=== PATIENT | male | born 1960 | race African-American/Black ===

== ENCOUNTER 2017-01-23 20:33 | Inpatient (IN) | payer OTHER ==
[~2017-01-23] VITALS: Ht 172.7 cm; Wt 85.4 kg
[~2017-01-23 20:33] MED LIST: ALBUAER3 INH; CEPALOZ PO; META48.53 PO; PHEN60SU RECTAL; SALI0.653 EACH NARE; TYLE325T PO
[2017-01-23 20:36] VITALS: BP 150/72; PULSE 95; RESP 15; TEMP 99.2; O2SAT 99
--- NOTE | 2017-01-23 20:43 | PD ---
Physical Exam Time Seen by Provider: 20:41 Narrative 56 y/o male presents with sob, cough, headache, reported syncopal event, nausea , paresthesias in the extremities. Symptoms started yesterday. he has had cold symptoms for several days. vital signs reviewed. Seen at triage desk. Awaiting bed placement. Data Data Last Documented VS Vital Signs Date Time Temp Pulse Resp B/P Pulse Ox O2 Delivery O2 Flow Rate FiO2 01/23/17 20:36 99.2 95 15 150/72 99 Room Air Orders Electrocardiogram (01/23/17 ) [facility] Medical Record Reviewed: Yes Supervised Visit with FEDERICO: Jonathan Irby January 23, 2017 20:43
[2017-01-23 21:19] LABS: AUTOMATED NEUTROPHIL # 4.2 TH/MM3 (1.8-7.7); BASOPHIL # 0.1 TH/MM3 (0-0.2); BASOPHIL % 0.9 % (0.0-2.0); EOSINOPHIL % 0.3 % (0.0-4.0); HEMATOCRIT 27.7 % (39.0-51.0); HEMO FLAGS DIFF FINAL; LYMPHOCYTE # 1.4 TH/MM3 (1.0-4.8); MEAN CELL VOLUME 79.7 FL (80.0-100.0); MEAN CORPUSCULAR HEMOGLOBIN 25.9 PG (27.0-34.0); MEAN CORPUSCULAR HGB CONC 32.5 % (32.0-36.0); MONO % 16.2 % (0.0-8.0); NEUT % 61.6 % (16.0-70.0); PLATELET COUNT 382 TH/MM3 (150-450); RED BLOOD COUNT 3.48 MIL/MM3 (4.50-5.90); RED CELL DISTRIBUTION WIDTH 16.8 % (11.6-17.2); WHITE BLOOD COUNT 6.8 TH/MM3 (4.0-11.0)
--- NOTE | 2017-01-23 21:19 | RADRPT ---
EXAM DATE/TIME: 01/23/2017 21:11 [facility] COMPARISON: CHEST SINGLE AP, August 16, 2016, 22:15. INDICATIONS : Shortness of breath and chest pain. MEDICAL HISTORY : Chronic obstructive pulmonary disease. Asthma. SURGICAL HISTORY : None. ENCOUNTER: Initial ACUITY: 3 days PAIN SCORE: 3/10 LOCATION: chest FINDINGS: A single view of the chest demonstrates the lungs to be symmetrically aerated without evidence of mas s, infiltrate or effusion. The cardiomediastinal contours are unremarkable. Osseous structures are intact. CONCLUSION: No acute disease. Polo Cheney MD on January 23, 2017 at 21:17 Board Certified Radiologist. This report was verified electronically.
[2017-01-23] MEDS ORDERED: ADVA250A INH (21:20)
[2017-01-23 21:41] LABS: ANION GAP 7 MEQ/L (5-15); BICARBONATE 29.7 MEQ/L (21.0-32.0); BLOOD UREA NITROGEN 13 MG/DL (7-18); CHLORIDE 104 MEQ/L (98-107); GLOMERULAR FILTRATION RATE 80 ML/MIN (>89); MAGNESIUM 2.1 MG/DL (1.5-2.5); POTASSIUM 3.8 MEQ/L (3.5-5.1); SODIUM (NA) 141 MEQ/L (136-145)
--- NOTE | 2017-01-23 21:43 | PD ---
HPI Chief Complaint: Chest Pain Time Seen by Provider: 21:39 Travel History International Travel<30 days: No Contact w/Intl Traveler<30days: No Traveled to known affect area: No History of Present Illness HPI Patient comes in for evaluation of left-sided chest pain intermittently over the past month that is getting progressively worse. Patient reports he has a nonproductive cough, shortness of breath, and nausea. Patient reports he has a history of COPD he has been using his inhaler as well as taking over-the- counter medication with little improvement of symptoms. Patient states that today he got into an argument with his brother abhishek while sitting down went to stand up and passed out briefly. Patient states he's has happened to him before but has never been evaluated for it. Patient reportedly had some numbness and tingling in his left upper lower extremity today as well. Denies any radiation of the chest pain. PFSH Past Medical History Hx Anticoagulant Therapy: No Anemia: Yes Arthritis: Yes (HANDS) Asthma: Yes Autoimmune Disease: No Blood Disorders: Yes (PT STATES 2 YEAR HISTORY OF BLOOD IN STOOL) Anxiety: Yes Depression: Yes Heart Rhythm Problems: Yes Cancer: No Cardiac Catheterization: No Cardiovascular Problems: Yes High Cholesterol: No Chemotherapy: No Chest Pain: Yes Congestive Heart Failure: No COPD: Yes Cerebrovascular Accident: No Diabetes: No Diminished Hearing: Yes ([place] LEFT EAR) Endocrine: No Gastrointestinal Disorders: Yes GERD: No Glaucoma: No Genitourinary: No Headaches: Yes Hepatitis: No Hiatal Hernia: No Hypertension: Yes Immune Disorder: No Inguinal Hernia: Yes Insomnia: Yes Kidney Stones: No Musculoskeletal: Yes (HERNIA) Neurologic: No Psychiatric: Yes Reproductive: No Respiratory: Yes Immunizations Current: No Migraines: Yes Myocardial Infarction: No Radiation Therapy: No Renal Failure: No Seizures: No Sickle Cell Disease: No Sleep Apnea: Yes (does not wear cpap) Thyroid Disease: No Ulcer: Yes (HX OF GI BLEED) Past Surgical History Abdominal Surgery: Yes (HERNIA REPAIR INGUINAL X2) AICD: No Cardiac Surgery: No Coronary Artery Bypass Graft: No Ear Surgery: No Endocrine Surgery: No Eye Surgery: No Genitourinary Surgery: No Gynecologic Surgery: No Neurologic Surgery: No Oral Surgery: No Pacemaker: No Thoracic Surgery: No Other Surgery: Yes (HERNIA REPAIR) Social History Alcohol Use: Yes (4 days per week) Tobacco Use: No Substance Use: No (marijuana) Allergies-Medications (Allergen,Severity, Reaction): Coded Allergies: Contrast Media (Verified Allergy, Severe, 01/23/17) DURING LAST STRESS TEST Iodine (Verified Allergy, Severe, 01/23/17) Reported Meds & Prescriptions Reported Meds & Active Scripts Active Metamucil Original Texture (Psyllium Hydrophilic Mucilloid) 48.57 % Pow 1 Scoop PO DAILY PRN 30 Days 1 rounded TEAS[place] in 8 oz of liquid at the first sign of irregularity. Preparation H Supp (Phenylephrine-Gary Butter Supp) 0.25-88.44 % Supp 1 Supp RECTAL QID PRN 14 Days Reported Advair Diskus Inh (Fluticasone-Salmeterol Inh) 250-50 Mcg/Blist Aer 1 Puff INH BID Rinse mouth after use. Proair Hfa 8.5 GM Inh (Albuterol Sulfate) 90 Mcg/Act Aer 2 Puff INH Q4-6H PRN 108 mcg/actuation Review of Systems Except as stated in HPI: all other systems reviewed are Neg Physical Exam Narrative GENERAL: Well-developed, overly nourished, in no acute distress, and non-ill appearing. SKIN: Focused skin assessment warm and dry. HEAD: Atraumatic. Normocephalic. EYES: Pupils equal and round. EOMI. No scleral icterus. No injection or drainage. ENT: No nasal bleeding or discharge. Mucous membranes pink and moist. NECK: Trachea midline. Supple. No nuclear rigidity. CARDIOVASCULAR: Regular rate and rhythm. No murmur appreciated. RESPIRATORY: No accessory muscle use. No respiratory distress. Clear to auscultation. Breath sounds equal bilaterally. GASTROINTESTINAL: Abdomen soft, non-tender, nondistended. Hepatic and splenic margins not palpable. Normal bowel sounds 4. No pulsatile mass. MUSCULOSKELETAL: No obvious deformities. No clubbing. No cyanosis. No edema. Full range of motion. NEUROLOGICAL: Awake and alert. No obvious cranial nerve deficits. Motor grossly within normal limits. Normal speech. PSYCHIATRIC: Appropriate mood and affect; insight and judgment normal. Data Data Last Documented VS Vital Signs Date Time Temp Pulse Resp B/P Pulse Ox O2 Delivery O2 Flow Rate FiO2 01/23/17 20:36 99.2 95 15 150/72 99 Room Air Orders Electrocardiogram (01/23/17 ) Basic Metabolic Panel (Bmp) (01/23/17 20:47) B-Type Natriuretic Peptide (01/23/17 20:47) Complete Blood Count With Diff (01/23/17 20:47) Magnesium (Mg) (01/23/17 20:47) Prothrombin Time / Inr (Pt) (01/23/17 20:47) Act Partial Throm Time (Ptt) (01/23/17 20:47) Troponin I (01/23/17 20:47) Chest, Single Ap (01/23/17 20:47) D-Dimer (01/23/17 20:49) Ct Brain W/O Iv Contrast(Rout) (01/23/17 ) Albuterol Neb (Albuterol Neb) (01/23/17 22:15) Ventilation & Perfusion Scan (01/23/17 ) Aspirin Chew (Aspirin Chew) (01/23/17 23:00) Orthostatic Vital Signs (01/23/17 22:50) Labs Laboratory Tests Test 01/23/17 20:57 White Blood Count 6.8 TH/MM3 Red Blood Count 3.48 MIL/MM3 Hemoglobin 9.0 GM/DL Hematocrit 27.7 % Mean Corpuscular Volume 79.7 FL Mean Corpuscular Hemoglobin 25.9 PG Mean Corpuscular Hemoglobin 32.5 % Concent Red Cell Distribution Width 16.8 % Platelet Count 382 TH/MM3 Mean Platelet Volume 7.6 FL Neutrophils (%) (Auto) 61.6 % Lymphocytes (%) (Auto) 21.0 % Monocytes (%) (Auto) 16.2 % Eosinophils (%) (Auto) 0.3 % Basophils (%) (Auto) 0.9 % Neutrophils # (Auto) 4.2 TH/MM3 Lymphocytes # (Auto) 1.4 TH/MM3 Monocytes # (Auto) 1.1 TH/MM3 Eosinophils # (Auto) 0.0 TH/MM3 Basophils # (Auto) 0.1 TH/MM3 CBC Comment DIFF FINAL Differential Comment Prothrombin Time 11.9 SEC Prothromb Time International 1.1 RATIO Ratio Activated Partial 22.8 SEC Thromboplast Time D-Dimer Quantitative (PE/DVT) 1.08 MG/L FEU Sodium Level 141 MEQ/L Potassium Level 3.8 MEQ/L Chloride Level 104 MEQ/L Carbon Dioxide Level 29.7 MEQ/L Anion Gap 7 MEQ/L Blood Urea Nitrogen 13 MG/DL Creatinine 1.14 MG/DL Estimat Glomerular Filtration 80 ML/MIN Rate Random Glucose 124 MG/DL Calcium Level 9.5 MG/DL Magnesium Level 2.1 MG/DL Troponin I LESS THAN 0.02 NG/ML B-Type Natriuretic Peptide 34 PG/ML MDM Medical Decision Making Medical Screen Exam Complete: Yes Emergency Medical Condition: Yes Interpretation(s) EKG reviewed by Dr. Max shows sinus rhythm with ventricular rate of 95. No STEMI. Differential Diagnosis Acute coronary syndrome, pneumonia, COPD exacerbation, PE, electrolyte abnormality, other Narrative Course Patient seen and examined. Initial laboratory, chest x-ray, CT the head was ordered along with a VQ scan after elevated d-dimer was noted. Patient was signed out to Dr. Max, at the end of my shift. Please see his documentation for final diagnosis and disposition. Servando Paula January 23, 2017 21:42
[2017-01-23] MEDS ORDERED: RESP: ALBUTEROL 2.5 MG/3 ML NEB (SCH) INH ONE (22:15)
[2017-01-23 22:24] LABS: APTT (PATIENT) 22.8 SEC (24.3-30.1); INTERNATIONAL NORMALIZED RATIO 1.1 RATIO; PROTHROMBIN TIME - PATIENT 11.9 SEC (9.8-11.6)
--- NOTE | 2017-01-23 22:49 | RADRPT ---
EXAM DATE/TIME: 01/23/2017 22:35 [facility] COMPARISON: CT BRAIN W/O CONTRAST, May 18, 2015, 3:17. INDICATIONS : Headaches. RADIATION DOSE: 40.57 CTDIvol (mGy) MEDICAL HISTORY : Cardiovascular disease. Hypertension. Chronic obstructive pulmonary disease. SURGICAL HISTORY : Inguinal hernia repair. ENCOUNTER: Initial ACUITY: 1 day PAIN SCALE: 10/10 LOCATION: cranial TECHNIQUE: Multiple contiguous axial images were obtained of the head. Using automated exposure control and adj ustment of the mA and/or kV according to patient size, radiation dose was kept as low as reasonably a chievable to obtain optimal diagnostic quality images. FINDINGS: CEREBRUM: The ventricles are normal for age. No evidence of midline shift, mass lesion, hemorrhage or acute in farction. No extra-axial fluid collections are seen. POSTERIOR FOSSA: The cerebellum and brainstem are intact. The 4th ventricle is midline. The cerebellopontine angle i s unremarkable. EXTRACRANIAL: The visualized portion of the orbits is intact. SKULL: The calvaria is intact. No evidence of skull fracture. CONCLUSION: Unremarkable noncontrast CT. Polo Cheney MD on January 23, 2017 at 22:46 Board Certified Radiologist. This report was verified electronically.
[2017-01-23] MEDS ORDERED: ASPIRIN 81 MG CHEW TAB PO ONE (23:00)
--- NOTE | 2017-01-23 23:36 | RADRPT ---
EXAM DATE/TIME: 01/23/2017 22:51 [facility] COMPARISON: CHEST SINGLE AP, January 23, 2017, 21:11. INDICATIONS : Left sided chest pain with dyspnea and syncopal episode. DOSE: 8.5 mCi Tc99m MAA IV 2.2 mCi Tc99m DTPA aerosol MEDICAL HISTORY : Chronic obstructive pulmonary disease. Hypertension. SURGICAL HISTORY : Inguinal hernia repair. ENCOUNTER: Initial ACUITY: 1 day PAIN SCALE: 3/10 LOCATION: Left chest TECHNIQUE: Following five minutes of tidal breathing of DTPA aerosol, planar images of the lungs were performed in eight projections. The patient was then injected with MAA, and eight-view perfusion scan was perf ormed. FINDINGS: There are multiple bilateral subsegmental defects which are mismatched. The chest radiograph is clear . The findings are high probability for pulmonary embolism. CONCLUSION: 1. High probability of pulmonary embolism Sherif Knight MD on January 23, 2017 at 23:33 Board Certified Radiologist. This report was verified electronically.
[2017-01-24] VITALS (13 sets, daily range): BP systolic 107–143; BP diastolic 55–86; PULSE 51–89; RESP 16–21; TEMP 96.8–99.3; O2SAT 95–99
--- NOTE | 2017-01-24 00:19 | PD ---
Data Data Last Documented VS Vital Signs Date Time Temp Pulse Resp B/P Pulse Ox O2 Delivery O2 Flow Rate FiO2 01/23/17 20:36 99.2 95 15 150/72 99 Room Air Orders Electrocardiogram (01/23/17 ) Basic Metabolic Panel (Bmp) (01/23/17 20:47) B-Type Natriuretic Peptide (01/23/17 20:47) Complete Blood Count With Diff (01/23/17 20:47) Magnesium (Mg) (01/23/17 20:47) Prothrombin Time / Inr (Pt) (01/23/17 20:47) Act Partial Throm Time (Ptt) (01/23/17 20:47) Troponin I (01/23/17 20:47) Chest, Single Ap (01/23/17 20:47) D-Dimer (01/23/17 20:49) Ct Brain W/O Iv Contrast(Rout) (01/23/17 ) Albuterol Neb (Albuterol Neb) (01/23/17 22:15) Ventilation & Perfusion Scan (01/23/17 ) Aspirin Chew (Aspirin Chew) (01/23/17 23:00) Orthostatic Vital Signs (01/23/17 22:50) Heparin Infusion EDWIN.Q1H (01/24/17 00:13) Heparin-D5w Inj (Heparin-D5w Inj) (01/24/17 00:15) Act Partial Throm Time (Ptt) (01/24/17 00:13) Prothrombin Time / Inr (Pt) (01/24/17 00:13) Cbc No Diff, Includes Plts (01/24/17 00:13) Cbc No Diff, Includes Plts (01/27/17 06:00) Act Partial Throm Time (Ptt) (01/24/17 07:13) Occult Blood (Hemoccult) Stool (01/24/17 00:13) Labs Laboratory Tests Test 01/23/17 20:57 White Blood Count 6.8 TH/MM3 Red Blood Count 3.48 MIL/MM3 Hemoglobin 9.0 GM/DL Hematocrit 27.7 % Mean Corpuscular Volume 79.7 FL Mean Corpuscular Hemoglobin 25.9 PG Mean Corpuscular Hemoglobin 32.5 % Concent Red Cell Distribution Width 16.8 % Platelet Count 382 TH/MM3 Mean Platelet Volume 7.6 FL Neutrophils (%) (Auto) 61.6 % Lymphocytes (%) (Auto) 21.0 % Monocytes (%) (Auto) 16.2 % Eosinophils (%) (Auto) 0.3 % Basophils (%) (Auto) 0.9 % Neutrophils # (Auto) 4.2 TH/MM3 Lymphocytes # (Auto) 1.4 TH/MM3 Monocytes # (Auto) 1.1 TH/MM3 Eosinophils # (Auto) 0.0 TH/MM3 Basophils # (Auto) 0.1 TH/MM3 CBC Comment DIFF FINAL Differential Comment Prothrombin Time 11.9 SEC Prothromb Time International 1.1 RATIO Ratio Activated Partial 22.8 SEC Thromboplast Time D-Dimer Quantitative (PE/DVT) 1.08 MG/L FEU Sodium Level 141 MEQ/L Potassium Level 3.8 MEQ/L Chloride Level 104 MEQ/L Carbon Dioxide Level 29.7 MEQ/L Anion Gap 7 MEQ/L Blood Urea Nitrogen 13 MG/DL Creatinine 1.14 MG/DL Estimat Glomerular Filtration 80 ML/MIN Rate Random Glucose 124 MG/DL Calcium Level 9.5 MG/DL Magnesium Level 2.1 MG/DL Troponin I LESS THAN 0.02 NG/ML B-Type Natriuretic Peptide 34 PG/ML MDM Supervised Visit with FEDERICO: Yes Narrative Course I, Dr. Max, have reviewed the advance practice practitioner's documentation and am in agreement, met with the patient face to face, made the diagnosis, and the medical decision making was done by me. See his note for further details. Briefly this a 56-year-old male with history of COPD who is here for evaluation of chest discomfort, shortness of breath, and a couple episodes. Patient has had these symptoms for the last month or so intermittently. He is complaining of left-sided chest discomfort that radiates to his left arm. He states that when he becomes upset/excited he has been having syncopal episodes over the last month. He is unsure if he has any history of cardiac disease. Initial vital signs show heart rate 95, blood pressure 150/72, pulse ox 99% on room air, oral temp of 99.2F. CBC is remarkable for hemoglobin of 9, hematocrit 27.7 which is slightly lower than his baseline. BMP is unremarkable. Cardiac enzymes are negative. BNP is 34. Chest x-ray shows no acute disease. CT head read as unremarkable noncontrast CT. VQ scan read as high probability for pulmonary embolism. Patient reports having episodes of bright red blood per rectum, reporting that he has history of hemorrhoids. Chart review shows that the patient had colonoscopy and endoscopy on 12/27/15 which showed colonic polyps and hemorrhoids as well as peptic ulcers. Today his stool is heme negative and brown. Because of VQ scan reading of high probability of PE, patient will need to be anticoagulated. He will be started on heparin without bolus, and CBC will be closely monitored for any drop in hemoglobin. Case discussed with hospitalist Dr. Raman who will admit the patient to her service. Patient and the patient's significant other were made aware of all findings and plan for admission. Diagnosis Primary Impression: Pulmonary embolism Qualified Code: I26.99 - Other pulmonary embolism without acute cor pulmonale , unspecified chronicity Additional Impressions: Syncope Qualified Code: R55 - Syncope, unspecified syncope type Chest pain Qualified Code: R07.9 - Chest pain, unspecified type Anemia Qualified Code: D64.9 - Anemia, unspecified type Admitting Information Admitting Physician Requests: Admit Myles Max MD January 24, 2017 00:19
[2017-01-24] MEDS ORDERED: NALOXONE HCL 0.4 MG/ML AMP IV PRN (00:30)
[2017-01-24] MEDS ORDERED: SODIUM CHLORIDE 0.9% FLUSH 10 ML FLUSH IV FLUSH PRN (00:30)
[2017-01-24 00:40] LABS: HEMATOCRIT 26.8 % (39.0-51.0); MEAN CELL VOLUME 79.9 FL (80.0-100.0); MEAN CORPUSCULAR HEMOGLOBIN 25.7 PG (27.0-34.0); MEAN CORPUSCULAR HGB CONC 32.2 % (32.0-36.0); PLATELET COUNT 355 TH/MM3 (150-450); RED BLOOD COUNT 3.36 MIL/MM3 (4.50-5.90); REVIEW FLAG FINAL; WHITE BLOOD COUNT 6.4 TH/MM3 (4.0-11.0)
[2017-01-24] MEDS: HEPARIN-D5W INJ 250 ML IV SCH ×2 (00:42→17:17)
[2017-01-24 00:55] LABS: APTT (PATIENT) 23.4 SEC (24.3-30.1); INTERNATIONAL NORMALIZED RATIO 1.1 RATIO; PROTHROMBIN TIME - PATIENT 11.7 SEC (9.8-11.6)
--- NOTE | 2017-01-24 03:29 | HHI.HP ---
[facility] Service [facility] Primary Care Physician Gilmar Anaya DO Admission Diagnosis pulmonary embolism, syncope, chest pain Diagnoses: (1) Chest pain (2) Pulmonary embolism (3) Syncope (4) Anemia Chief Complaint: shortness of breath, dizziness, headaches, nausea Travel History International Travel<30 Days: No Contact w/Intl Traveler <30 Da: No Traveled to Known Affected Are: No History of Present Illness Mr. Weinberg is a 56 year-old male with a history of COPD, GI bleed, anemia, anxiety, depression, hypertension, and sleep apnea (does not use CPAP) who presented to the emergency room with one month history of progressively worsening intermittent chest pain with shortness of breath, dizziness, and syncope. VQ scan was performed in ER showing high probability for pulmonary embolism. The patient is seen in the CDU. He reports that he has been feeling "short of wind", chest pain, dizziness, headaches, nausea without vomiting, and intermittent bright red with clots and at times dark stools (reports internal hemorrhoids - banded one year ago) over the past month. He states that earlier on 01/23/2017, he and his brother were in an argument, he stood up, and passed out. He denies leg swelling but reports that his legs feel "tingly". He denies any recent long distance travel or recent surgeries. The patient reports an allergic reaction during a nuclear stress test. He states that as soon as they injected the medication, he "fell out" and doesn't remember anything until he woke up afterwards. According to the record from 01/22, while performing the stress test portion of the test with adenosine, the patient became extremely short of breath with bilateral wheezing described as a "severe asthmatic attack" only 2 minutes into the exam and the test had to be terminated. His shortness of breath was treated with oxygen, albuterol inhaler , and Aminophyllin. It took 15-20 minutes for him to recover from this reaction to adenosine. Subsequently, I am questioning whether the contrast media is a true allergy for this patient. He reports being able to eat shellfish though reports that sometimes his girlfriend tells him that he gets a rash on his back when eating shrimp but he is not 100% sure and does not avoid eating shrimp. . Review of Systems Except as stated in HPI: all other systems reviewed are Neg Past Family Social History Past Medical History COPD GI bleed Anemia Anxiety Depression Hypertension Sleep apnea not using CPAP Inguinal hernia Left ear hearing impaired Borderline diabetes Rheumatic fever in childhood Tuberculosis treated with INH . Past Surgical History Inguinal hernia repair 2 . Reported Medications Reported Meds & Active Scripts Active Metamucil Original Texture (Psyllium Hydrophilic Mucilloid) 48.57 % Pow 1 Scoop PO DAILY PRN 30 Days 1 rounded TEASPOON in 8 oz of liquid at the first sign of irregularity. Preparation H Supp (Phenylephrine-[place] Butter Supp) 0.25-88.44 % Supp 1 Supp RECTAL QID PRN 14 Days Reported Advair Diskus Inh (Fluticasone-Salmeterol Inh) 250-50 Mcg/Blist Aer 1 Puff INH BID Rinse mouth after use. Proair Hfa 8.5 GM Inh (Albuterol Sulfate) 90 Mcg/Act Aer 2 Puff INH Q4-6H PRN 108 mcg/actuation . Allergies: Coded Allergies: Adenosine (Verified Allergy, Intermediate, Respiratory Failure, 01/24/17) Active Ordered Medications Current Medications Albuterol Sulfate (Albuterol Neb) 2.5 mg ONCE ONCE INH Last administered on 22:12; Start 01/23/17 at 22:15; Stop 01/23/17 at 22:16; Status DC Aspirin 324 mg 324 mg ONCE ONCE PO Last administered on 01/23/17 23:26; Start 01/23/17 at 23:00; Stop 01/23/17 at 23:01; Status DC Heparin Sodium/ Dextrose (Heparin-D5W Inj) 250 ml @ 0 mls/hr TITRATE IV Last administered on 01/24/17 00:42; Start 01/24/17 at 00:15 Sodium Chloride (NS Flush) 2 ml UNSCH PRN IV FLUSH FLUSH AFTER USING IV ACCESS ; Start 01/24/17 at 00:30 Sodium Chloride (NS Flush) 2 ml BID IV FLUSH ; Start 01/24/17 at 09:00 Naloxone HCl (Narcan Inj) 0.4 mg UNSCH PRN IV SEE LABEL COMMENTS; Start at 00:30 . Family History Father when he was young from pneumonia Mother from sepsis following perforated colon after colonoscopy family history of diabetes . Social History Tobacco: denies smoking cigarettes and states was never a heavy smoker; quit smoking one month ago Alcohol: 2 beers a day Illicit Drugs: occasional marijuana; 4 years ago smoked crack but none since; no IVDA . Physical Exam Vital Signs Vital Signs Date Time Temp Pulse Resp B/P Pulse Ox O2 Delivery O2 Flow Rate FiO2 01/24/17 02:27 99.1 83 18 130/63 95 01/24/17 00:26 95 16 124/60 01/24/17 00:26 18 123/62 01/24/17 00:25 96 16 133/70 01/23/17 20:36 99.2 95 15 150/72 99 Room Air Physical Exam GENERAL: This is a pleasant male patient, in no apparent distress. SKIN: No rashes, ecchymoses or lesions. Cool and dry. HEAD: Atraumatic. Normocephalic. EYES: No scleral icterus. No injection or drainage. ENT: Nose without bleeding, purulent drainage. NECK: Trachea midline. No JVD or lymphadenopathy. CARDIOVASCULAR: Regular rate and rhythm without murmurs, gallops, or rubs. RESPIRATORY: Clear to auscultation. Breath sounds equal bilaterally. No wheezes , rales, or rhonchi. GASTROINTESTINAL: Abdomen soft, non-tender, nondistended. No guarding. MUSCULOSKELETAL: Extremities without clubbing, cyanosis, or edema. No calf tenderness. NEUROLOGICAL: Awake and alert. Motor and sensory grossly within normal limits. Normal speech. . Laboratory Laboratory Tests Test 01/23/17 01/24/17 20:57 00:25 White Blood Count 6.8 6.4 Red Blood Count 3.48 3.36 Hemoglobin 9.0 8.6 Hematocrit 27.7 26.8 Mean Corpuscular Volume 79.7 79.9 Mean Corpuscular Hemoglobin 25.9 25.7 Mean Corpuscular Hemoglobin 32.5 32.2 Concent Red Cell Distribution Width 16.8 17.0 Platelet Count 382 355 Mean Platelet Volume 7.6 7.4 Neutrophils (%) (Auto) 61.6 Lymphocytes (%) (Auto) 21.0 Monocytes (%) (Auto) 16.2 Eosinophils (%) (Auto) 0.3 Basophils (%) (Auto) 0.9 Neutrophils # (Auto) 4.2 Lymphocytes # (Auto) 1.4 Monocytes # (Auto) 1.1 Eosinophils # (Auto) 0.0 Basophils # (Auto) 0.1 CBC Comment DIFF FINAL Differential Comment Prothrombin Time 11.9 11.7 Prothromb Time International 1.1 1.1 Ratio Activated Partial 22.8 23.4 Thromboplast Time D-Dimer Quantitative (PE/DVT) 1.08 Sodium Level 141 Potassium Level 3.8 Chloride Level 104 Carbon Dioxide Level 29.7 Anion Gap 7 Blood Urea Nitrogen 13 Creatinine 1.14 Estimat Glomerular Filtration 80 Rate Random Glucose 124 Calcium Level 9.5 Magnesium Level 2.1 Troponin I LESS THAN 0.02 B-Type Natriuretic Peptide 34 Result Diagram: 01/24/175 01/23/172056 Imaging Last Impressions Chest X-Ray 01/23/172046 Signed Impressions: Service Date/Time: Monday, January 23, 2017 21:11 - CONCLUSION: No acute disease. Polo Cheney MD Lung Scan-VQ Nuclear Medicine 01/23/17 0000 Signed Impressions: Service Date/Time: Monday, January 23, 2017 22:51 - CONCLUSION: 1. High probability of pulmonary embolism Sherif Knight MD Head CT 01/23/17 0000 Signed Impressions: Service Date/Time: Monday, January 23, 2017 22:35 - CONCLUSION: Unremarkable noncontrast CT. Polo Cheney MD . Assessment and Plan Problem List: (1) Chest pain ICD Code: R07.9 Status: Acute (2) Pulmonary embolism ICD Code: I26.99 Status: Acute (3) Syncope ICD Code: R55 Status: Acute (4) Anemia ICD Code: D64.9 Status: Acute Assessment and Plan Mr. Weinberg is a 56 year-old male who presented to the emergency room with one month history of progressively worsening intermittent chest pain. VQ scan was performed showing high probability for pulmonary embolism. Chest pain most likely r/t PE - Initial troponin I less than 0.02 - BNP normal at 34 Pulmonary embolism suspected - Negative chest x-ray - D-dimer elevated at 1.08 - VQ scan showed high probability for PE - Heparin drip - Monitor closely for bleeding - given patient report of GI bleed, and high probability of PE - would like to premedicate for CT pulmonary angiogram to confirm presence of PE - discussed with quality assurance technician - review of allergy to contrast from 01/22/2005 stress test, suspect reaction was from adenosine and not contrast and listed allergy may be in error - patient able to eat shellfish GI bleeding reported - Stool Hemoccult in ER negative - consulted GI Syncope - Head CT unremarkable - Most likely related to anemia/PE Anemia - Hemoglobin 9.0 and hematocrit 27.7 on initial presentation with subsequent decreased to 8.6 and 26.8 in 3-1/2 hours - Stool guaiac negative in ER - Repeat CBC in a.m. and follow trends DVT prophylaxis - on heparin drip Written by Millie Cooper, acting as scribe for Dr. Raman on 01/24/17 at 03:30. This note was transcribed by scribe [Millie Cooper]. I, Dr. Jess Raman personally performed the history, physical exam, and medical decision making; and confirmed the accuracy of the information in the transcribed note. Authenticated by Dr. Jess Raman on 01/24/17 at 03:30. Discussed Condition With ER physician and patient . Physician Certification 2 Midnight Certification Type: Admission for Inpatient Services Order for Inpatient Services The services are ordered in accordance with Medicare regulations or non- Medicare payer requirements, as applicable. In the case of services not specified as inpatient-only, they are appropriately provided as inpatient services in accordance with the 2-midnight benchmark. Estimated LOS (days): 4 days is the estimated time the patient will need to remain in the hospital, assuming treatment plan goals are met and no additional complications. Post-Hospital Plan: Not yet determined Problem Qualifiers (1) Chest pain: Qualified Code: R07.9 - Chest pain, unspecified type (2) Pulmonary embolism: Qualified Code: I26.99 - Other pulmonary embolism without acute cor pulmonale, unspecified chronicity (3) Syncope: Qualified Code: R55 - Syncope, unspecified syncope type (4) Anemia: Qualified Code: D64.9 - Anemia, unspecified type Millie Cooper January 24, 2017 03:29 Jess Raman MD Mar 04, 2017 11:58
[2017-01-24] MEDS ORDERED: RESP: ALBUTEROL 2.5 MG/IPRATROPIUM 0.5 MG NEB (PRN) NEB ×2 (05:15→10:15)
[2017-01-24 07:50] LABS: APTT (PATIENT) 42.7 SEC (24.3-30.1)
[2017-01-24] MEDS: SODIUM CHLORIDE 0.9% FLUSH 10 ML FLUSH IV FLUSH SCH ×2 (08:44→22:57)
--- NOTE | 2017-01-24 09:46 | HHI.PR ---
Subjective Remarks just had BM at bedside = bright red blood moderate amount- per - history of external hemorrhoids- band ligation done in [place] few years ago sounds like he had also an UGIS done then easily gets SOB with just from bed to the bedside commode- sister says for few weeks now denies any leg swelling but did complain of calf pain left few weeks ago- "i Had to massage it" Objective Vitals Vital Signs Date Time Temp Pulse Resp B/P Pulse Ox O2 Delivery O2 Flow Rate FiO2 01/24/17 07:31 98.4 73 21 134/61 98 01/24/17 02:27 99.1 83 18 130/63 95 01/24/17 02:00 87 01/24/17 00:26 95 16 124/60 01/24/17 00:26 18 123/62 01/24/17 00:25 96 16 133/70 01/23/17 20:36 99.2 95 15 150/72 99 Room Air Result Diagram: 01/24/17 0025 01/23/172056 Imaging Last Impressions Chest X-Ray 01/23/172046 Signed Impressions: Service Date/Time: Monday, January 23, 2017 21:11 - CONCLUSION: No acute disease. Polo Cheney MD Lung Scan-VQ Nuclear Medicine 01/23/17 0000 Signed Impressions: Service Date/Time: Monday, January 23, 2017 22:51 - CONCLUSION: 1. High probability of pulmonary embolism Sherif Knight MD Head CT 01/23/17 0000 Signed Impressions: Service Date/Time: Monday, January 23, 2017 22:35 - CONCLUSION: Unremarkable noncontrast CT. Polo Cheney MD Objective Remarks appears short of breath anicteric lungs few rhonchi, no rales regular rhythm abdomen soft, nontender extremities no edema, no calf tenderness A/P Problem List: (1) Chest pain ICD Code: R07.9 Status: Acute (2) Pulmonary embolism ICD Code: I26.99 Status: Acute (3) Syncope ICD Code: R55 Status: Acute (4) Anemia ICD Code: D64.9 Status: Acute Assessment and Plan 56 years old Acute Pulmonary embolism on VQ scan started on on heparin drip. no recent history of travel. states not physically actively- but per patient he gets up everyday. Get hypercoaguable panel. will get a hematology consult - PE with active GIB - for recommendations get doppler of both LE Lower GI bleed- BRBPR- history of external hemorrhoids S/P band ligation in the past. GI consult Microcytic anemia from GI bleed- now actively bleeding. Transfuse 2 units RBC. Check Iron stores- Iron/TIBC/ferritin Likely with underlying COPD- smoker. Duonebs qid scheduled and prn q 2 Problem Qualifiers (1) Chest pain: Qualified Code: R07.9 - Chest pain, unspecified type (2) Pulmonary embolism: Qualified Code: I26.99 - Other pulmonary embolism without acute cor pulmonale, unspecified chronicity (3) Syncope: Qualified Code: R55 - Syncope, unspecified syncope type (4) Anemia: Qualified Code: D64.9 - Anemia, unspecified type Pan Boston MD January 24, 2017 09:46
--- NOTE | 2017-01-24 10:01 | PD.CONS ---
HPI History of Present Illness This is a 56 year old [gentleman] who came to the ER for chest pains, not feeling well, dizzy, activity intolerance, SOB. HE has nausea as well. He says he was here last month with similar symptoms and was sent home. THis has been going on for months. He says he has hemorrhoids for years and thinks he has bleeding ulcers and has seen dark and bright red blood in his stool on and off for years. He says he was here years ago and told he had ulcers but says he 's never had an EGD. HE admits epigastric pain on occasion, is unble to qualify further. He has heartburn occasionally. Former alcoholic. He had colonoscopy and hemorrhoid banding about a year ago in [place] at the [facility]. Admits occasional constipation, takes metamucil. Occasional lower abdominal pain. Denies vomiting. No frequent NSAID or ASA use. (Adelina Andrade) PFSH Past Medical History COPD GI bleed Anemia Anxiety Depression Hypertension Sleep apnea not using CPAP Inguinal hernia Left ear hearing impaired Borderline diabetes Rheumatic fever in childhood Tuberculosis treated with INH . Past Surgical History Inguinal hernia repair 2 . (Adelina Andrade) Coded Allergies: Contrast Media (Verified Allergy, Severe, 01/23/17) DURING LAST STRESS TEST Iodine (Verified Allergy, Severe, 01/23/17) Medications Current Medications Medications (Trade) Dose Ordered Sig/Gena Route PRN Reason Start Time Stop Time Status Last Admin Dose Admin Heparin Sodium/ Dextrose (Heparin-D5W Inj) 250 ml @ 0 mls/hr TITRATE IV 01/24/17 00:15 01/24/17 00:42 Sodium Chloride (NS Flush) 2 ml UNSCH PRN IV FLUSH FLUSH AFTER USING IV ACCESS 01/24/17 00:30 Sodium Chloride (NS Flush) 2 ml BID IV FLUSH 01/24/17 09:00 Naloxone HCl (Narcan Inj) 0.4 mg UNSCH PRN IV SEE LABEL COMMENTS 01/24/17 00:30 Hydrocortisone Acetate (Hemorrhoidal Hc Supp) 25 mg BID RECTAL 01/24/17 10:00 Family History family history of diabetes . Social History quit smoking cigarettes 3 m ago former alcoholic, currently drinks beer and wine, maybe 2 per day Illicit Drugs: occasional marijuana - started smoking 1 month ago about 1 joint daily 4 years ago smoked crack but none since; no IVDA . (Adelina Andrade) Review of Systems Constitutional: COMPLAINS OF: Diaphoretic episodes, Fatigue, Chills, Dizziness , DENIES: Fever Endocrine: COMPLAINS OF: Polydipsia, Polyuria Eyes: DENIES: Blurred vision Ears, nose, mouth, throat: DENIES: Throat pain Respiratory: DENIES: Hemoptysis Cardiovascular: COMPLAINS OF: Chest pain Gastrointestinal: COMPLAINS OF: Abdominal pain, Black stools, Bloody stools, Diarrhea, Nausea, DENIES: Vomiting Genitourinary: COMPLAINS OF: Urinary frequency Musculoskeletal: COMPLAINS OF: Muscle aches (legs) Integumentary: DENIES: Abnormal pigmentation Hematologic/lymphatic: DENIES: Bruising Neurologic: DENIES: Abnormal gait Psychiatric: DENIES: Confusion (Adelina Andrade) GI Exam Vitals I&O Vital Signs Date Time Temp Pulse Resp B/P Pulse Ox O2 Delivery O2 Flow Rate FiO2 01/24/17 07:31 98.4 73 21 134/61 98 01/24/17 02:27 99.1 83 18 130/63 95 01/24/17 02:00 87 01/24/17 00:26 95 16 124/60 01/24/17 00:26 18 123/62 01/24/17 00:25 96 16 133/70 01/23/17 20:36 99.2 95 15 150/72 99 Room Air Laboratory Test 01/23/17 01/24/17 01/24/17 20:57 00:25 07:21 White Blood Count 6.8 TH/MM3 6.4 TH/MM3 Red Blood Count 3.48 MIL/MM3 3.36 MIL/MM3 Hemoglobin 9.0 GM/DL 8.6 GM/DL Hematocrit 27.7 % 26.8 % Mean Corpuscular Volume 79.7 FL 79.9 FL Mean Corpuscular Hemoglobin 25.9 PG 25.7 PG Mean Corpuscular Hemoglobin 32.5 % 32.2 % Concent Red Cell Distribution Width 16.8 % 17.0 % Platelet Count 382 TH/MM3 355 TH/MM3 Mean Platelet Volume 7.6 FL 7.4 FL Neutrophils (%) (Auto) 61.6 % Lymphocytes (%) (Auto) 21.0 % Monocytes (%) (Auto) 16.2 % Eosinophils (%) (Auto) 0.3 % Basophils (%) (Auto) 0.9 % Neutrophils # (Auto) 4.2 TH/MM3 Lymphocytes # (Auto) 1.4 TH/MM3 Monocytes # (Auto) 1.1 TH/MM3 Eosinophils # (Auto) 0.0 TH/MM3 Basophils # (Auto) 0.1 TH/MM3 CBC Comment DIFF FINAL Differential Comment Prothrombin Time 11.9 SEC 11.7 SEC Prothromb Time International 1.1 RATIO 1.1 RATIO Ratio Activated Partial 22.8 SEC 23.4 SEC 42.7 SEC Thromboplast Time D-Dimer Quantitative (PE/DVT) 1.08 MG/L FEU Sodium Level 141 MEQ/L Potassium Level 3.8 MEQ/L Chloride Level 104 MEQ/L Carbon Dioxide Level 29.7 MEQ/L Anion Gap 7 MEQ/L Blood Urea Nitrogen 13 MG/DL Creatinine 1.14 MG/DL Estimat Glomerular Filtration 80 ML/MIN Rate Random Glucose 124 MG/DL Calcium Level 9.5 MG/DL Magnesium Level 2.1 MG/DL Troponin I LESS THAN 0.02 NG/ML B-Type Natriuretic Peptide 34 PG/ML Physical Examination HEENT: Pupils round and reactive to light; normocephalic; atraumatic; no jaundice. Throat is clear. NECK: Neck is supple, no JVD, no lymphadenopathy. CHEST: Chest is clear to auscultation and percussion. CARDIAC: Regular rate and rhythm with no murmur gallop or rubs. ABDOMEN: Soft, nondistended, nontender; no hepatosplenomegaly; bowel sounds are present in all four quadrants. EXTREMITIES: No clubbing, cyanosis, or edema. SKIN: Normal; no rash; no jaundice. CUSTOMER CARE AGENT: No focal deficits; alert and oriented times three. (Adelina Andrade [facility]) Assessment and Plan Plan ASSESSMENT: - rectal bleeding - pt reports all colors blood intermittently in stool for years. pt has hx hemorrhoids, anal fissure (per paperwork brought by ). hemoccult in ER neg. - anemia - 8.6, 26.8. blood transfusions. - epigastric pain - possible ulcer, pt has hx alcoholism. will need EGD - PE - on heparin PLAN: - ZOILA - pt will need EGD/colonoscopy but will hold off until more stable and PE resolved - monitor labs - transfuse as necessary - hydrocortisone suppository for rectal bleeding This pt seen by myself and Dr lou and this note is written on his behalf ( Adelina Andrade) Physician Comments Seen and examined with VIANEY, needs Endoscopy but due to shortness of breath and recent PE will hold off for now. He has had recent colonoscopy with banding in [place]. Hydrocortisone supp bid. Gi leo when able. Discussed with and pt. Monitor H/H (Gil Lou MD) Adelina Andrade January 24, 2017 10:01 Gil Lou MD January 24, 2017 12:26
[2017-01-24 10:58] LABS: APTT (PATIENT) 40.9 SEC (24.3-30.1); INTERNATIONAL NORMALIZED RATIO 1.1 RATIO
--- NOTE | 2017-01-24 11:00 | RADRPT ---
EXAM DATE/TIME: 01/24/2017 10:00 [place] COMPARISON: No previous studies available for comparison. INDICATIONS : Bilateral leg pain. Shortness of breath. MEDICAL HISTORY : Chronic obstructive pulmonary disease. Hypertension. SURGICAL HISTORY : Inguinal hernia repair. ENCOUNTER: Initial ACUITY: 1 day PAIN SCORE: 5/10 LOCATION: Bilateral leg. TECHNIQUE: Venous ultrasound of the left and right leg was performed from the inguinal ligament to the proximal calf. Real-time, color Doppler and spectral tracing, compression and augmentation techniques were us ed. FINDINGS: RIGHT LEG: There is normal compressibility of the deep venous system from the inguinal region to the proximal ca lf. No echogenic clot is seen in the lumen of the common femoral, femoral, popliteal, and posterior tibial veins. There is a normal response of the venous system to proximal and distal augmentation an d respiration. LEFT LEG: There is normal compressibility of the deep venous system from the inguinal region to the proximal ca lf. No echogenic clot is seen in the lumen of the common femoral, femoral, popliteal, and posterior tibial veins. There is a normal response of the venous system to proximal and distal augmentation an d respiration. CONCLUSION: Normal examination. Gino Peterson Jr., MD on January 24, 2017 at 10:39 Board Certified Radiologist. This report was verified electronically.
[2017-01-24 11:46] LABS: ALKALINE PHOSPHATASE 61 U/L (45-117); ALT (GPT) 42 U/L (12-78); ANION GAP 7 MEQ/L (5-15); AST (GOT) 29 U/L (15-37); BICARBONATE 26.9 MEQ/L (21.0-32.0); BLOOD UREA NITROGEN 12 MG/DL (7-18); CHLORIDE 107 MEQ/L (98-107); FERRITIN 9 NG/ML (26-388); GLOMERULAR FILTRATION RATE 90 ML/MIN (>89); POTASSIUM 3.9 MEQ/L (3.5-5.1); SODIUM (NA) 141 MEQ/L (136-145); TOTAL BILIRUBIN ADULT 0.6 MG/DL (0.2-1.0); TRANSFERRIN IRON PROFILE 417 MG/DL (200-360)
[2017-01-24] MEDS: RESP: ALBUTEROL 2.5 MG/IPRATROPIUM 0.5 MG NEB (SCH) NEB ×2 (12:57→16:32)
[2017-01-24] MEDS: HYDROCORTISONE ACETATE 25 MG SUPP RECTAL SCH ×2 (13:20→22:57)
[2017-01-24 15:35] LABS: APTT (PATIENT) 48.6 SEC (24.3-30.1)
[2017-01-24] MEDS ORDERED: ACETAMINOPHEN 325 MG TAB PO PRN (16:30)
--- NOTE | 2017-01-24 18:00 | EKG ---
Date Performed: 01/23/2017 Time Performed: 20:51:49 PTAGE: 56 years EKG: Sinus rhythm POSSIBLE RIGHT VENTRICULAR CONDUCTION DELAY BORDERLINE ECG Compared to prior tracing no significant change PREVIOUS TRACING on 08/16/16. DOCTOR: Sherif Mathur Interpretating Date/Time 01/24/2017 17:59:30
--- NOTE | 2017-01-24 19:57 | MB ---
cc: MICHAEL SR MD DATE OF CONSULTATION: 01/24/2017. REASON FOR CONSULTATION: Suspected pulmonary embolus in a patient with GI bleeding. REQUESTING PHYSICIAN: Consult requested by the Hospitalist Service. CURRENT TREATMENT: The patient is presently on IV heparin infusion. CHIEF COMPLAINT: 1. Progressive difficulty breathing with exertion, PND, orthopnea over the past eight months. 2. Blood in the stools including large clots and fresh blood for the past several weeks. HISTORY OF PRESENT ILLNESS: Mr. Weinberg is a pleasant 56-year-old male who reports having had a history of rheumatic fever as a child and progressive difficulty breathing with exertion as well as when he lies flat for the past many months. He tells me he sleeps on three to four pillows and frequently wakes up during sleep to catch his breath. He has to sit up in order to catch his breath. The patient also reports having had a history of gastric ulcers, he tells me he has had significant amounts of blood in his stool and tells me this occurs almost every time he moves his bowels. He tells me at times he is afraid to move his bowels because of concern for the amount of bleeding. The patient reports being more short of breath as of late. Earlier today he tried to get up from a sitting position, he tells me he was involved in some sort of a verbal altercation with his brother. He spoke loudly and felt faint and blacked out for several seconds. He was then brought into the emergency department. He tells me a similar episode occurred some weeks ago when he was laughing hard. Upon admission to the hospital, his vital signs indicated normal oxygen saturation of 99% on room air. His vital signs were also noted to be within normal limits; specifically, his blood pressure and heart rate. As a part of the workup, he underwent a VQ scan of the chest which revealed high probability for pulmonary embolus. He was therefore initiated on IV heparin. He continues to have GI bleeding. Hemoglobin at the time of presentation was noted to be 9 gm/dl associated with microcytosis. Over the course of hospitalization, his hemoglobin did drop by 0.5 gm/dl and he is currently receiving red cell transfusions. PAST MEDICAL HISTORY: 1. Tobacco and marijuana abuse. 2. Reactive airway disease. 3. Reported history of gastric ulcers. 4. Reported history of rheumatic fever as a child. PAST SURGICAL HISTORY: Bilateral inguinal hernia. FAMILY HISTORY: Diabetes. Denies oncologic diagnoses in the family. SOCIAL HISTORY: Lives at home with his from whom he is somewhat estranged. He has children. He is disabled. He previously worked as a cook. He tells me he smokes daily. He previously was a heavy drinker but no longer drinks. ALLERGIES: 1. ADENOSINE. REVIEW OF SYSTEMS: CONSTITUTIONAL: Reports fatigue, weakness, denies fevers, chills, night sweats. He reports having frequent migraines. Denies difficulty swallowing, soreness in the throat, denies hemoptysis. RESPIRATORY: Reports exertional dyspnea, denies hemoptysis or pleuritic chest pain aches. CARDIOVASCULAR: Denies angina-like chest pain. He reports PND and orthopnea. GI: Denies nausea, vomiting, diarrhea. He reports hematochezia. Denies melena. Denies jaundice. : No complaints of dysuria, hematuria or urinary incontinence. LOWER EXTREMITIES: Denies edema. PHYSICAL EXAMINATION: VITAL SIGNS: Temperature 99.3 degrees Fahrenheit, heart rate 78 beats minute, blood pressure is 133/86, respiratory rate 17, O2 sats are 97% on room air. GENERAL PHYSICAL APPEARANCE: Mr. Weinberg is a middle-aged -[place] male. He is short and of muscular build. He has in particular a very thick and muscular neck. HEAD, EYES, EARS, NOSE, THROAT: Head is atraumatic and normocephalic. Conjunctivae are mildly pale. The sclerae are anicteric. Extraocular muscles intact. Pupils equal, round and reactive to light and accommodation. ORAL EXAM: No pharyngeal erythema. NECK EXAM: No palpable cervical or supraclavicular lymphadenopathy. RESPIRATORY EXAM: Good air movement bilaterally. No added breath sounds. CARDIOVASCULAR EXAM: Regular rate and rhythm. S1, S2. No jugular venous distention. ABDOMEN: Protuberant belly, soft, nontender, nondistended. No palpable organ enlargement. Positive bowel sounds. EXTREMITIES: No pretibial edema. No calf tenderness. COMMUNITY ARTS WORKER: No focal sensory or motor deficits. LABORATORY FINDINGS: Blood work dated 01/24/2017: WBC count 6.4, hemoglobin 8.6 gm/dl, hematocrit 26.8%, MCV 90, platelet count 355,000. Chemistries: Sodium 141, potassium 3.9, chloride 107, bicarb 27, BUN 12, creatinine 1, EGFR 90, calcium 9. Serum iron level 25, percent iron saturation 4.3, TIBC is elevated at 584, ferritin level of 9, which is low. Total bilirubin 0.6, AST 29, ALT 42, alkaline phosphatase 61, albumin 3.5. Folic acid 15.8, vitamin B12 470. IMAGING STUDIES: VQ scan dated 01/23/2017: High probability for pulmonary embolus. The pictures were reviewed by myself personally and patchy VQ mismatches are noted in the bilateral lungs. Ultrasound Dopplers of the lower extremities indicate no evidence of deep venous thrombosis. ASSESSMENT: Mr. Weinberg is a very pleasant 56-year-old male, he is a smoker, has a history of rheumatic fever and presents with symptoms of progressive difficulty breathing especially with exertion and also PND and orthopnea. He tells me in the past he has passed out when he laughs hard or when he speaks loudly. Prior to this admission, he was in an argument with his brother and was speaking very loudly when he felt faint and passed out. He presented to the emergency department following a syncopal episode. He was worked up for pulmonary embolus with a VQ scan. The VQ scan was ordered because it was thought he had IV contrast allergies (though be safely received IV contrast during a CT scan of the abdomen and pelvis in December of 2013 without allergies). At any rate, the VQ scan indicated high probability for pulmonary embolus and he was initiated on anticoagulation with heparin. Also based on his history, he has had GI bleeding and is anemic with iron deficiency. RECOMMENDATIONS: 1. At this point I think it would be most appropriate to confirm a diagnosis of pulmonary embolus. Given his lack of hypoxia, lack of hypotension and no evidence of tachycardia as well as a history which is not typical for pulmonary embolus, I am skeptical of the diagnosis of pulmonary embolus. I would like to obtain a CT angiogram because this question has been raised. If the CT angiogram of the chest is negative for pulmonary embolus, I would recommend discontinuation of anticoagulation. 2. Anemia secondary to GI bleeding: I would recommend treating him with iron intravenously and then orally. He needs a GI workup as well. The hematology service will follow along with you. Should a pulmonary embolus be confirmed, that would complicate matters significantly as he would have competing indications for anticoagulation as well as not to anticoagulate. In situations like this, it may be reasonable to deploy an IVC filter provided a diagnosis of pulmonary embolus is confirmed and there is a relative or strong contraindication for anticoagulation. MD ZITA Olmstead/CHENG /7:10 PM /7:37 PM
[2017-01-24] MEDS ORDERED: IOHEXOL 350 MG/ML 10 ML VIAL (for RAD DIAG) IV ONE (22:30)
--- NOTE | 2017-01-24 22:50 | RADRPT ---
EXAM DATE/TIME: 01/24/2017 22:23 [facility] COMPARISON: No previous studies available for comparison. INDICATIONS : Short of breath and chest pain. IV CONTRAST: 75 cc Omnipaque 350 (iohexol) IV RADIATION DOSE: 10.23 CTDIvol (mGy) MEDICAL HISTORY : Chronic obstructive pulmonary disease. SURGICAL HISTORY : None. ENCOUNTER: Initial ACUITY: 1 day PAIN SCALE: 5/10 LOCATION: Chest TECHNIQUE: Volumetric scanning of the chest was performed using a pulmonary embolism protocol MIP images were reconstructed. Using automated exposure control and adjustment of the mA and/or kV acco rding to patient size, radiation dose was kept as low as reasonably achievable to obtain optimal diag nostic quality images. FINDINGS: The pulmonary arterial structures are well demonstrated. A pulmonary embolus is not pre sent. The patient does have emphysematous change in the upper lungs. There is a 1.1 cm irregular de nsity seen in the left lung apex. The mid and lower lungs are grossly clear. No effusion is seen. Significant mediastinal or hilar adenopathy is not appreciated. CONCLUSION: 1. No pulmonary embolus. 2. 1.1 cm irregular mass-like area seen in the left upper lung. It is felt this area could be further evaluated with a PET/FDG study to determine if it is metabolically active or not. If it is metaboli karmen active then a biopsy could be attempted despite the prominent emphysematous change seen around this region putting the patient at risk for a pneumothorax. If the area does not demonstrate increas ed activity on the PET scan, it could be closely followed. If the PET scan is not performed at the betty least a follow-up CT examination in three months would be recommended. Jeffery Villalba MD on January 24, 2017 at 22:41 Board Certified Radiologist. This report was verified electronically.
[2017-01-25] VITALS (8 sets, daily range): BP systolic 116–143; BP diastolic 59–84; PULSE 64–79; RESP 20; TEMP 97.5–98.6; O2SAT 95–99
[2017-01-25] MEDS: RESP: ALBUTEROL 2.5 MG/IPRATROPIUM 0.5 MG NEB (SCH) NEB ×6 (00:08→20:02)
[2017-01-25 08:33] LABS: AUTOMATED NEUTROPHIL # 3.2 TH/MM3 (1.8-7.7); BASOPHIL % 0.5 % (0.0-2.0); EOSINOPHIL # 0.1 TH/MM3 (0-0.4); EOSINOPHIL % 1.2 % (0.0-4.0); HEMATOCRIT 34.1 % (39.0-51.0); HEMO FLAGS DIFF FINAL; LYMPH % 22.9 % (9.0-44.0); LYMPHOCYTE # 1.3 TH/MM3 (1.0-4.8); MEAN CELL VOLUME 81.5 FL (80.0-100.0); MEAN CORPUSCULAR HEMOGLOBIN 25.6 PG (27.0-34.0); MEAN CORPUSCULAR HGB CONC 31.4 % (32.0-36.0); MONO % 18.6 % (0.0-8.0); NEUT % 56.8 % (16.0-70.0); PLATELET COUNT 339 TH/MM3 (150-450); RED BLOOD COUNT 4.19 MIL/MM3 (4.50-5.90); RED CELL DISTRIBUTION WIDTH 16.3 % (11.6-17.2); WHITE BLOOD COUNT 5.6 TH/MM3 (4.0-11.0)
[2017-01-25 08:43] LABS: POTASSIUM 3.6 MEQ/L (3.5-5.1)
--- NOTE | 2017-01-25 08:48 | HHI.PR ---
Subjective Remarks no abdominal pain, nausea or vomiting + hematochezia- BRB stools no chest pains or shortness of breath Objective Vitals Vital Signs Date Time Temp Pulse Resp B/P Pulse Ox O2 Delivery O2 Flow Rate FiO2 01/25/17 07:00 97.5 72 20 117/59 96 01/25/17 04:00 98.6 64 20 116/66 98 01/25/17 00:00 98.3 79 20 143/84 97 01/24/17 22:32 97.8 82 20 130/70 97 01/24/17 22:00 98.1 82 20 130/70 97 01/24/17 20:00 99.3 78 20 135/75 97 01/24/17 18:49 99.2 89 18 130/68 01/24/17 17:24 99.3 78 17 133/86 01/24/17 14:56 99.0 77 17 143/74 97 01/24/17 11:40 98.4 82 18 120/55 99 I/O 01/24/17 01/24/17 01/24/17 01/25/17 01/25/17 01/25/17 07:00 15:00 23:00 07:00 15:00 23:00 Intake Total 780 ml 240 ml Output Total 900 ml Balance -120 ml 240 ml Intake Oral 480 ml 240 ml Packed Cells 300 ml Output Urine Total 900 ml # Voids 1 # Bowel Movements 0 0 Result Diagram: 01/24/17 0025 01/24/17 0942 Other Results Last Impressions Lower Extremity Ultrasound 01/24/17 0000 Signed Impressions: Service Date/Time: January 10:00 - CONCLUSION: Normal examination. Gino Peterson Jr., MD CT Angiography 01/24/17 0000 Signed Impressions: Service Date/Time: January 22:23 - CONCLUSION: 1. No pulmonary embolus. 2. 1.1 cm irregular mass-like area seen in the left upper lung. It is felt this area could be further evaluated with a PET/FDG study to determine if it is metabolically active or not. If it is metabolically active then a biopsy could be attempted despite the prominent emphysematous change seen around this region putting the patient at risk for a pneumothorax. If the area does not demonstrate increased activity on the PET scan, it could be closely followed. If the PET scan is not performed at the very least a follow-up CT examination in three months would be recommended. Jeffery Villalba MD Chest X-Ray 01/23/172046 Signed Impressions: Service Date/Time: Monday, January 23, 2017 21:11 - CONCLUSION: No acute disease. Polo Cheney MD Lung Scan-VQ Nuclear Medicine 01/23/17 Signed Impressions: Service Date/Time: Monday, January 23, 2017 22:51 - CONCLUSION: 1. High probability of pulmonary embolism Sherif Knight MD Head CT 01/23/17 Signed Impressions: Service Date/Time: Monday, January 23, 2017 22:35 - CONCLUSION: Unremarkable noncontrast CT. Polo Cheney MD Imaging Last Impressions Lower Extremity Ultrasound 01/24/17 Signed Impressions: Service Date/Time: January 10:00 - CONCLUSION: Normal examination. Gino Peterson Jr., MD CT Angiography 01/24/17 Signed Impressions: Service Date/Time: January 22:23 - CONCLUSION: 1. No pulmonary embolus. 2. 1.1 cm irregular mass-like area seen in the left upper lung. It is felt this area could be further evaluated with a PET/FDG study to determine if it is metabolically active or not. If it is metabolically active then a biopsy could be attempted despite the prominent emphysematous change seen around this region putting the patient at risk for a pneumothorax. If the area does not demonstrate increased activity on the PET scan, it could be closely followed. If the PET scan is not performed at the very least a follow-up CT examination in three months would be recommended. Jeffery Villalba MD Chest X-Ray 01/23/172046 Signed Impressions: Service Date/Time: Monday, January 23, 2017 21:11 - CONCLUSION: No acute disease. Polo Cheney MD Lung Scan-VQ Nuclear Medicine 01/23/17 Signed Impressions: Service Date/Time: Monday, January 23, 2017 22:51 - CONCLUSION: 1. High probability of pulmonary embolism Sherif Knight MD Head CT 01/23/17 Signed Impressions: Service Date/Time: Monday, January 23, 2017 22:35 - CONCLUSION: Unremarkable noncontrast CT. Polo Cheney MD Objective Remarks NAD anicteric lungs no rales or wheezes regular rhythm abdomen soft, nontender extremities no edema, no calf tenderness, no swelling neuro exam unremarkable A/P Problem List: (1) Chest pain ICD Code: R07.9 Status: Acute (2) Pulmonary embolism ICD Code: I26.99 Status: Acute (3) Syncope ICD Code: R55 Status: Acute (4) Anemia ICD Code: D64.9 Status: Acute Assessment and Plan 56 years old Lower GI bleed- BRBPR- history of external hemorrhoids S/P band ligation in the past. still with BRBPR. Iron deficiency anemia from chronic GI blood loss- give IV Iron daily x 3 days S/P 2 units blood transfusion. CBC good this am. recheck at 1300 on Anusol supp. GI ff- - plan for EGD and colonoscopy eventually No PE on CTA. Lung mass on CT. d/w Dr. Barillas Underlying COPD- smoker.- lungs clear Duonebs prn q 2. Restart home MDIs- Jose GALINDOI-, Nirmal GALINDOI.. add Spiriva. counselled on smoking cessation check PFTs Up and ambulating Problem Qualifiers (1) Chest pain: Qualified Code: R07.9 - Chest pain, unspecified type (2) Pulmonary embolism: Qualified Code: I26.99 - Other pulmonary embolism without acute cor pulmonale, unspecified chronicity (3) Syncope: Qualified Code: R55 - Syncope, unspecified syncope type (4) Anemia: Qualified Code: D64.9 - Anemia, unspecified type Pan Boston MD January 25, 2017 08:48
[2017-01-25] MEDS: TIOTROPIUM BROMIDE 18 MCG INH INH SCH (09:00)
[2017-01-25] MEDS: IRON SUCROSE INJ 100 MG in SODIUM CHLORIDE 0.9% INJ 100 ML IV SCH (09:00)
[2017-01-25] MEDS: SODIUM CHLORIDE 0.9% FLUSH 10 ML FLUSH IV FLUSH SCH ×2 (09:00→20:56)
[2017-01-25] MEDS ORDERED: ALBUTEROL SULFATE 90 MCG/ACT HFA 8 GM INHALER INH SCH (10:00)
--- NOTE | 2017-01-25 10:02 | HHI.GIFU ---
Subjective Remarks Resting in bed. Mild nausea with no vomiting. Mild epigastric discomfort. States he had a large amount of red blood and blood clots mixed with his stool this am. (Alina Gomez) Objective Vitals I&O Vital Signs Date Time Temp Pulse Resp B/P Pulse Ox O2 Delivery O2 Flow Rate FiO2 01/25/17 07:00 97.5 72 20 117/59 96 01/25/17 04:00 98.6 64 20 116/66 98 01/25/17 00:00 98.3 79 20 143/84 97 01/24/17 22:32 97.8 82 20 130/70 97 01/24/17 22:00 98.1 82 20 130/70 97 01/24/17 20:00 99.3 78 20 135/75 97 01/24/17 18:49 99.2 89 18 130/68 01/24/17 17:24 99.3 78 17 133/86 01/24/17 14:56 99.0 77 17 143/74 97 01/24/17 11:40 98.4 82 18 120/55 99 I/O 01/24/17 01/24/17 01/24/17 01/25/17 01/25/17 01/25/17 07:00 15:00 23:00 07:00 15:00 23:00 Intake Total 780 ml 240 ml Output Total 900 ml Balance -120 ml 240 ml Intake Oral 480 ml 240 ml Packed Cells 300 ml Output Urine Total 900 ml # Voids 1 # Bowel Movements 0 0 Laboratory Laboratory Tests Test 01/24/17 01/25/17 14:58 07:00 Activated Partial 48.6 Thromboplast Time White Blood Count 5.6 Red Blood Count 4.19 Hemoglobin 10.7 Hematocrit 34.1 Mean Corpuscular Volume 81.5 Mean Corpuscular Hemoglobin 25.6 Mean Corpuscular Hemoglobin 31.4 Concent Red Cell Distribution Width 16.3 Platelet Count 339 Mean Platelet Volume 7.9 Neutrophils (%) (Auto) 56.8 Lymphocytes (%) (Auto) 22.9 Monocytes (%) (Auto) 18.6 Eosinophils (%) (Auto) 1.2 Basophils (%) (Auto) 0.5 Neutrophils # (Auto) 3.2 Lymphocytes # (Auto) 1.3 Monocytes # (Auto) 1.0 Eosinophils # (Auto) 0.1 Basophils # (Auto) 0.0 CBC Comment DIFF FINAL Differential Comment Sodium Level 139 Potassium Level 3.6 Chloride Level 105 Carbon Dioxide Level 26.0 Anion Gap 8 Blood Urea Nitrogen 14 Creatinine 1.02 Estimat Glomerular Filtration 91 Rate Random Glucose 100 Calcium Level 9.1 Imaging Last Impressions Lower Extremity Ultrasound 01/24/17 Signed Impressions: Service Date/Time: January 10:00 - CONCLUSION: Normal examination. Gino Peterson Jr., MD CT Angiography 01/24/17 Signed Impressions: Service Date/Time: January 22:23 - CONCLUSION: 1. No pulmonary embolus. 2. 1.1 cm irregular mass-like area seen in the left upper lung. It is felt this area could be further evaluated with a PET/FDG study to determine if it is metabolically active or not. If it is metabolically active then a biopsy could be attempted despite the prominent emphysematous change seen around this region putting the patient at risk for a pneumothorax. If the area does not demonstrate increased activity on the PET scan, it could be closely followed. If the PET scan is not performed at the very least a follow-up CT examination in three months would be recommended. Jeffery Villalba MD Chest X-Ray 01/23/172046 Signed Impressions: Service Date/Time: Monday, January 23, 2017 21:11 - CONCLUSION: No acute disease. Polo Cheney MD Lung Scan- Nuclear Medicine 01/23/17 Signed Impressions: Service Date/Time: Monday, January 23, 2017 22:51 - CONCLUSION: 1. High probability of pulmonary embolism Sherif Knight MD Head CT 01/23/17 Signed Impressions: Service Date/Time: Monday, January 23, 2017 22:35 - CONCLUSION: Unremarkable noncontrast CT. Polo Cheney MD Physical Exam HEENT: Normocephalic; atraumatic; no jaundice. CHEST: CTA. CARDIAC: RRR. ABDOMEN: Soft, nondistended, mild epigastric tenderness; no hepatosplenomegaly ; bowel sounds are present in all four quadrants. EXTREMITIES: No clubbing, cyanosis, or edema. SKIN: Normal; no rash; no jaundice. RISK MANAGEMENT SPECIALIST: No focal deficits; alert and oriented times three. (Alina Gomez) Assessment and Plan Plan ASSESSMENT: - Rectal bleeding. Has hx of hemorrhoids and anal fissure and has had rectal bleeding for past year. CTA negative for PE. Pt had large amount of red blood and blood clots mixed with stool this am. Rpt. HH pending. Plan for EGD/Colonoscopy in am. - Anemia, acute blood loss. S/P 2 units PRBC. HH this am was 10.7, 34.1. However, had a large amount of rectal bleeding after this and therefore repeat HH was ordered and is pending. - Epigastric pain, Nausea. PPI. EGD in am - Abn. VQ Scan with high probability for PE, but CTA negative for PE. - Left upper lung mass. CTA with 1.1 cm irregular mass like area in left upper lung, recommends PET/FDG vs CT Thorax in 3 months. Per primary PLAN: - Plan for EGD/Colonoscopy in am - Obtain consents - Clear liquids - NPO after MN - Golytely prep - PPI - Hydrocortisone suppositories - Await HH - Monitor CBC - Supportive care - Further recommendations to follow based on results of above - Pt seen and examined by Dr. Stone and myself and this note is written on his behalf (Alina Gomez) Physician Comments Seen and examined with VIANEY, Continues to have gi bleed. PE ruled out. EGD/ Colonoscopy planned for tomorrow. Golytle prep. (Gil Stone MD) Alina Gomez January 25, 2017 10:02 Gil Stone MD January 25, 2017 15:06
[2017-01-25] MEDS: HYDROCORTISONE ACETATE 25 MG SUPP RECTAL SCH ×2 (10:50→20:56)
[2017-01-25] MEDS: ALBUTEROL SULFATE 90 MCG/ACT HFA 18 GM INHALER INH SCH ×3 (12:00→23:31)
[2017-01-25] MEDS ORDERED: PEG (High)/E-LYTE SOLN 4000 ML BTL PO ONE (16:00)
[2017-01-25 17:40] LABS: HEMATOCRIT 32.9 % (39.0-51.0)
--- NOTE | 2017-01-25 18:12 | PD.ONC.PN ---
Subjective Subjective Remarks Pt reports continued blood in the stool though not quite as heavy as the days prior. He is now been off of heparin since 11:30pm On 01/24/2017. He tells me he is scheduled for colonoscopy tomorrow. Denies difficulty breathing beyond his baseline. Objective Data Date Time Temp Pulse Resp B/P Pulse Ox O2 Delivery O2 Flow Rate FiO2 01/25/17 17:10 98.5 72 20 135/76 96 01/25/17 12:24 97.9 72 20 129/64 95 01/25/17 11:10 98 21 01/25/17 07:00 97.5 72 20 117/59 96 01/25/17 04:00 98.6 64 20 116/66 98 01/25/17 00:00 98.3 79 20 143/84 97 01/24/17 22:32 97.8 82 20 130/70 97 01/24/17 22:00 98.1 82 20 130/70 97 01/24/17 20:00 99.3 78 20 135/75 97 01/24/17 18:49 99.2 89 18 130/68 01/25/17 01/25/17 01/25/17 07:00 15:00 23:00 Intake Total 240 ml 960 ml Balance 240 ml 960 ml Result Diagram: 01/25/17 1651 01/25/17 0700 Laboratory Results Laboratory Tests Test 01/25/17 01/25/17 07:00 16:51 White Blood Count 5.6 TH/MM3 Red Blood Count 4.19 MIL/MM3 Hemoglobin 10.7 GM/DL 10.7 GM/DL Hematocrit 34.1 % 32.9 % Mean Corpuscular Volume 81.5 FL Mean Corpuscular Hemoglobin 25.6 PG Mean Corpuscular Hemoglobin 31.4 % Concent Red Cell Distribution Width 16.3 % Platelet Count 339 TH/MM3 Mean Platelet Volume 7.9 FL Neutrophils (%) (Auto) 56.8 % Lymphocytes (%) (Auto) 22.9 % Monocytes (%) (Auto) 18.6 % Eosinophils (%) (Auto) 1.2 % Basophils (%) (Auto) 0.5 % Neutrophils # (Auto) 3.2 TH/MM3 Lymphocytes # (Auto) 1.3 TH/MM3 Monocytes # (Auto) 1.0 TH/MM3 Eosinophils # (Auto) 0.1 TH/MM3 Basophils # (Auto) 0.0 TH/MM3 CBC Comment DIFF FINAL Differential Comment Sodium Level 139 MEQ/L Potassium Level 3.6 MEQ/L Chloride Level 105 MEQ/L Carbon Dioxide Level 26.0 MEQ/L Anion Gap 8 MEQ/L Blood Urea Nitrogen 14 MG/DL Creatinine 1.02 MG/DL Estimat Glomerular Filtration 91 ML/MIN Rate Random Glucose 100 MG/DL Calcium Level 9.1 MG/DL Administered Medications Medications (Trade) Dose Ordered Sig/Gena Route PRN Reason Start Time Stop Time Status Last Admin Dose Admin Sodium Chloride (NS Flush) 2 ml BID IV FLUSH 01/24/17 09:00 01/25/17 09:00 Hydrocortisone Acetate 25 mg 25 mg BID RECTAL 01/24/17 10:00 01/25/17 10:50 Iron Sucrose/ Sodium Chloride (Venofer Inj/NS Inj) 105 ml @ 105 mls/hr DAILY IV 01/25/17 09:00 01/27/17 09:59 01/25/17 09:00 Objective Remarks GENERAL PHYSICAL APPEARANCE: Mr. Weinberg is a middle-aged -[place] male. He is short and of muscular build. He has in particular a very thick and muscular neck. HEAD, EYES, EARS, NOSE, THROAT: Head is atraumatic and normocephalic. Conjunctivae are mildly pale. The sclerae are anicteric. Extraocular muscles intact. Pupils equal, round and reactive to light and accommodation. ORAL EXAM: No pharyngeal erythema. NECK EXAM: No palpable cervical or supraclavicular lymphadenopathy. RESPIRATORY EXAM: Good air movement bilaterally. No added breath sounds. CARDIOVASCULAR EXAM: Regular rate and rhythm. S1, S2. No jugular venous distention. ABDOMEN: Protuberant belly, soft, nontender, nondistended. No palpable organ enlargement. Positive bowel sounds. EXTREMITIES: No pretibial edema. No calf tenderness. REGULATORY AFFAIRS INTERNSHIP: No focal sensory or motor deficits. Assessment/Plan Assessment 56-year-old male with a history of tobaccoism, COPD/emphysema, GI bleeding with resultant iron deficiency anemia. Presents post syncopal episode. CT angiogram performed on 01/24/2017 indicates no evidence of pulmonary embolus but he was found to have a spiculated lesion involving the left upper lobe the lung. Given the appearance of the lesion I suspect this is more related to a scar however this does warrant follow-up imaging scans. Plan 1. Iron deficiency anemia: Continue intravenous iron replacement therapy. GI workup continues to identify a source of bleeding. 2. Spiculated left upper lobe nodule: Monitor according to the Fleishner Society guidelines with restaging imaging in 3 months to assess for stability. For this I will arrange outpatient follow-up. Aung Barillas MD January 25, 2017 18:12
[2017-01-25] MEDS ORDERED: METOPROLOL TARTRATE 25 MG TAB PO PRN (20:00)
[2017-01-25] MEDS ORDERED: INSULIN HUMAN REGULAR 1,000 UNITS/10 ML VIAL SQ PRN (20:00)
[2017-01-25] MEDS ORDERED: LACTATED RINGER'S 1000 ML IV PRN (20:00)
[2017-01-25] MEDS ORDERED: SODIUM CHLORID 0.9% 500 ML IV PRN (20:00)
[2017-01-25] MEDS ORDERED: POVIDONE IODINE 5% (ANTISEPSIS KIT) 4 APPLICATIONS EACH NARE PRN (20:00)
[2017-01-25] MEDS ORDERED: CHLORHEXIDINE GLUCONATE 2 % 1 PACK (2 CLOTHS) TOPICAL PRN (20:00)
[2017-01-25] MEDS ORDERED: BUDESONIDE-FORMOTEROL 160/4.5 MCG INHALER INH SCH (21:15)
[2017-01-25] MEDS: BUDESONIDE-FORMOTEROL 160/4.5 MCG INHALER INH SCH (21:30)
[2017-01-26] VITALS (9 sets, daily range): BP systolic 114–143; BP diastolic 52–83; PULSE 78–90; RESP 18–20; TEMP 97.1–98.5; O2SAT 95–98
[2017-01-26] MEDS: RESP: ALBUTEROL 2.5 MG/IPRATROPIUM 0.5 MG NEB (SCH) NEB ×6 (00:18→20:36)
[2017-01-26] MEDS: ALBUTEROL SULFATE 90 MCG/ACT HFA 18 GM INHALER INH SCH (06:00)
[2017-01-26 07:25] LABS: AUTOMATED NEUTROPHIL # 4.2 TH/MM3 (1.8-7.7); BASOPHIL % 0.6 % (0.0-2.0); EOSINOPHIL # 0.1 TH/MM3 (0-0.4); HEMATOCRIT 32.7 % (39.0-51.0); HEMO FLAGS DIFF FINAL; LYMPH % 20.9 % (9.0-44.0); LYMPHOCYTE # 1.5 TH/MM3 (1.0-4.8); MEAN CELL VOLUME 80.6 FL (80.0-100.0); MEAN CORPUSCULAR HEMOGLOBIN 26.6 PG (27.0-34.0); MONO % 19.4 % (0.0-8.0); NEUT % 58.1 % (16.0-70.0); PLATELET COUNT 340 TH/MM3 (150-450); RED BLOOD COUNT 4.06 MIL/MM3 (4.50-5.90); WHITE BLOOD COUNT 7.2 TH/MM3 (4.0-11.0)
[2017-01-26] MEDS: BUDESONIDE-FORMOTEROL 160/4.5 MCG INHALER INH SCH ×2 (07:57→21:00)
[2017-01-26] MEDS: TIOTROPIUM BROMIDE 18 MCG INH INH SCH (07:58)
--- NOTE | 2017-01-26 08:23 | HHI.PR ---
Subjective Remarks rectal bleeding - brown liquid stools last night, this am some bright red blood - but per patient slowed down received prep for colonoscopy today denies any chest pain, shortness of breath or abdominal pain Objective Vitals Vital Signs Date Time Temp Pulse Resp B/P Pulse Ox O2 Delivery O2 Flow Rate FiO2 01/26/17 07:40 97.1 87 20 131/61 95 01/26/17 04:00 98.4 82 20 114/52 95 01/26/17 00:00 98.5 78 20 124/66 95 01/25/17 20:02 99 21 01/25/17 20:00 98.4 71 20 143/69 98 01/25/17 17:10 98.5 72 20 135/76 96 01/25/17 12:24 97.9 72 20 129/64 95 01/25/17 11:10 98 21 I/O 01/25/17 01/25/17 01/25/17 01/26/17 01/26/17 01/26/17 07:00 15:00 23:00 07:00 15:00 23:00 Intake Total 240 ml 1920 ml Balance 240 ml 1920 ml Intake Oral 240 ml 1920 ml # Voids 1 2 3 # Bowel Movements 0 1 3 Result Diagram: 01/26/17 0714 01/25/17 0700 Imaging Last Impressions Lower Extremity Ultrasound 01/24/17 0000 Signed Impressions: Service Date/Time: January 10:00 - CONCLUSION: Normal examination. Gino Peterson Jr., MD CT Angiography 01/24/17 0000 Signed Impressions: Service Date/Time: January 22:23 - CONCLUSION: 1. No pulmonary embolus. 2. 1.1 cm irregular mass-like area seen in the left upper lung. It is felt this area could be further evaluated with a PET/FDG study to determine if it is metabolically active or not. If it is metabolically active then a biopsy could be attempted despite the prominent emphysematous change seen around this region putting the patient at risk for a pneumothorax. If the area does not demonstrate increased activity on the PET scan, it could be closely followed. If the PET scan is not performed at the very least a follow-up CT examination in three months would be recommended. Jeffery Villalba MD Chest X-Ray 01/23/172046 Signed Impressions: Service Date/Time: Monday, January 23, 2017 21:11 - CONCLUSION: No acute disease. Polo Cheney MD Lung Scan-V Nuclear Medicine 01/23/17 0000 Signed Impressions: Service Date/Time: Monday, January 23, 2017 22:51 - CONCLUSION: 1. High probability of pulmonary embolism Sherif Knight MD Head CT 01/23/17 0000 Signed Impressions: Service Date/Time: Monday, January 23, 2017 22:35 - CONCLUSION: Unremarkable noncontrast CT. Polo Cheney MD Objective Remarks NAD anicteric lungs no rales or wheezes regular rhythm abdomen soft, nontender extremities no edema, no calf tenderness, no swelling neuro exam unremarkable A/P Problem List: (1) Chest pain ICD Code: R07.9 Status: Acute (2) Pulmonary embolism ICD Code: I26.99 Status: Acute (3) Syncope ICD Code: R55 Status: Acute (4) Anemia ICD Code: D64.9 Status: Acute Assessment and Plan 56 years old Lower GI bleed- BRBPR- history of external hemorrhoids S/P band ligation in the past. still with BRBPR. -. H and H stable Iron deficiency anemia from chronic GI blood loss- give IV Iron daily x 3 days S/P 2 units blood transfusion. on Anusol supp. GI ff- - for scope today No PE on CTA. Lung mass on CT. d/w Dr. Barillas- OP ff up with Dr. Barillas- will need PETscan Underlying COPD- smoker.- lungs clear continue MDIs- Jose GALINDOI-, Nirmal MDI.. add Spiriva. counselled on smoking cessation check PFTs Up and ambulating Problem Qualifiers (1) Chest pain: Qualified Code: R07.9 - Chest pain, unspecified type (2) Pulmonary embolism: Qualified Code: I26.99 - Other pulmonary embolism without acute cor pulmonale, unspecified chronicity (3) Syncope: Qualified Code: R55 - Syncope, unspecified syncope type (4) Anemia: Qualified Code: D64.9 - Anemia, unspecified type Pan Boston MD January 26, 2017 08:23
[2017-01-26] MEDS: IRON SUCROSE INJ 100 MG in SODIUM CHLORIDE 0.9% INJ 100 ML IV SCH (10:34)
[2017-01-26] MEDS: SODIUM CHLORIDE 0.9% FLUSH 10 ML FLUSH IV FLUSH SCH ×2 (10:35→21:43)
--- NOTE | 2017-01-26 13:22 | GIPROC ---
[facility] [address] [facility]. [facility], [address] EGD PROCEDURE REPORT EXAM DATE: 01/26/2017 PATIENT NAME: Abner Weinberg MR #: [id number] BIRTHDATE: 1960 ATTENDING: Gil Stone MD ORDER #: [id number] MANUFACTURING DEVELOPMENT ENGINEER: Annita Hanna and Anson Johnson STATUS: inpatient INDICATIONS: The patient is a 56 yr old male here for an EGD due to hematochezia and acute post hemorrhagic anemia PROCEDURE PERFORMED: EGD w/ biopsy MEDICATIONS: Per Anesthesia and None. TOPICAL ANESTHETIC: CONSENT: The patient understands the risks and benefits of the procedure and understands that these risks include, but are not limited to: sedation, allergic reaction, infection, perforation and/or bleeding. Alternative means of evaluation and treatment include, among others: physical exam, x-rays, and/or surgical intervention. The patient elects to proceed with this endoscopic procedure. medical equipment was checked for proper function. Hand hygiene and appropriate measures for infection prevention was taken. After the risks, benefits and alternatives of the procedure were thoroughly explained, Informed consent was verified, confirmed and timeout was successfully executed by the treatment team. The patient was anesthetized with topical anesthesia and the EC-3490Li (Pedi C) endoscope was introduced through the mouth and advanced to the second portion of the duodenum. Retroflexed views revealed no abnormalities The gastroscope was then slowly withdrawn and removed. ESOPHAGUS: The mucosa of the esophagus appeared normal. STOMACH: There was erythematous moderate gastritis in the gastric antrum. A biopsy was performed using cold forceps. Sample sent for histology. DUODENUM: Moderate duodenal inflammation was found in the bulb and second portion of the duodenum. ADVERSE EVENTS: There were no complications. IMPRESSIONS: 1. The esophagus appeared normal 2. There was erythematous gastritis in the gastric antrum; biopsy was performed 3. Duodenal inflammation was found in the bulb and second portion of the duodenum 4. Retroflexed views revealed no abnormalities RECOMMENDATIONS: 1. Await biopsy results. Biopsy results will not be ready for 7-10 days. If you don't hear from us in two weeks, call our office for biopsy results. 2. Anti-reflux regimen 3. Continue PPI 4. Avoid NSAIDS PATIENT CONDITION: stable DISPOSITION: Inpatient REPEAT EXAM: Return 1 year EGD pending biopsy results Gil Stone MD eSigned: Gil Stone MD 01/26/2017 1:21 PM cc: PATIENT NAME: Abner Weinberg MR#: [id number]
--- NOTE | 2017-01-26 13:24 | GIPROC ---
[facility] [address] [facility]. [facility], [address] COLONOSCOPY PROCEDURE REPORT EXAM DATE: 01/26/2017 PATIENT NAME: Abner Weinberg MR #: [id number] BIRTHDATE: 1960 ENDOSCOPIST: Gil Stone MD ORDER #: [id number] DEVELOPMENT ASSOCIATE: Annita Hanna and Anson Johnson STATUS: inpatient INDICATIONS: The patient is a 56 yr old male here for a colonoscopy due to iron deficiency anemia and hematochezia PROCEDURE PERFORMED: Colonoscopy with biopsy MEDICATIONS: Per Anesthesia and None. PREP QUALITY: The Story Bowel Prep Score was Right colon 2, Mid colon 3, and Left colon 3. Total = 8. PREP TYPE:GoLytely ESTIMATED BLOOD LOSS: None CONSENT: The patient understands the risks and benefits of the procedure and understands that these risks include, but are not limited to: sedation, allergic reaction, infection, perforation and/or bleeding. Alternative means of evaluation and treatment include, among others: physical exam, x-rays, and/or surgical intervention. The patient elects to proceed with this endoscopic procedure. medical equipment was checked for proper function. Hand hygiene and appropriate measures for infection prevention was taken. After the risks, benefits and alternatives of the procedure were thoroughly explained, Informed consent was verified, confirmed and timeout was successfully executed by the treatment team. A digital exam revealed external hemorrhoids The Pentax EC-3490Li endoscope was introduced through the anus and advanced to the cecum, which was identified by both the appendix and ileocecal valve. The instrument was then slowly withdrawn as the colon was fully examined. COLON FINDINGS: A polypoid shaped sessile polyp measuring 4 mm in size was found in the sigmoid colon. A biopsy was performed using cold forceps. Retroflexed views revealed internal hemorrhoids and Retroflexed views revealed medium internal hemorrhoids The scope was then completely withdrawn from the patient and the procedure terminated. PROCEDURE WITHDRAWAL TIME:6minutes ADVERSE EVENTS: There were no complications. IMPRESSIONS: 1. A sessile polyp was found in the sigmoid colon; biopsy was performed using cold forceps 2. Retroflexed views revealed internal hemorrhoids 3. Retroflexed views revealed medium internal hemorrhoids 4. Revealed external hemorrhoids RECOMMENDATIONS: 1. Await biopsy results. Biopsy results will not be ready for 7-10 days. If you don't hear from us in two weeks, call our office for results. 2. Continue surveillance 3. Yearly hemoccult 4. High fiber diet 5. CRS consult RECALL: Return 5 years Colonoscopy, pending biopsy results Gil Stone MD eSigned: Gil Stone MD 01/26/2017 1:24 PM cc: PATIENT NAME: Abner Weinberg MR#: [id number]
[2017-01-26] MEDS ORDERED: DO NOT ADM ANY ANTICOAGULANT DRUGS PRN (14:15)
[2017-01-26] MEDS ORDERED: PROPOFOL 200 MG/20 ML AMP IV ONE (15:36)
[2017-01-26] MEDS: HYDROCORTISONE ACETATE 25 MG SUPP RECTAL SCH (21:00)
[2017-01-27] VITALS (10 sets, daily range): BP systolic 115–138; BP diastolic 57–75; PULSE 27–107; RESP 15–20; TEMP 97–98.6; O2SAT 98–100
[2017-01-27] MEDS: RESP: ALBUTEROL 2.5 MG/IPRATROPIUM 0.5 MG NEB (SCH) NEB ×7 (00:42→23:55)
[2017-01-27] MEDS: ALBUTEROL SULFATE 90 MCG/ACT HFA 18 GM INHALER INH SCH ×5 (05:26→23:40)
[2017-01-27 07:51] LABS: THROMBIN TIME FOR LA ND sec (13-19)
[2017-01-27 08:00] LABS: HEMATOCRIT 33.3 % (39.0-51.0); MEAN CELL VOLUME 81.9 FL (80.0-100.0); MEAN CORPUSCULAR HEMOGLOBIN 25.8 PG (27.0-34.0); MEAN CORPUSCULAR HGB CONC 31.5 % (32.0-36.0); PLATELET COUNT 306 TH/MM3 (150-450); RED BLOOD COUNT 4.07 MIL/MM3 (4.50-5.90); RED CELL DISTRIBUTION WIDTH 16.4 % (11.6-17.2); REVIEW FLAG FINAL; WHITE BLOOD COUNT 7.2 TH/MM3 (4.0-11.0)
[2017-01-27] MEDS: HYDROCORTISONE ACETATE 25 MG SUPP RECTAL SCH ×3 (09:00→23:39)
[2017-01-27] MEDS: TIOTROPIUM BROMIDE 18 MCG INH INH SCH (09:22)
[2017-01-27] MEDS: IRON SUCROSE INJ 100 MG in SODIUM CHLORIDE 0.9% INJ 100 ML IV SCH (09:22)
[2017-01-27] MEDS: SODIUM CHLORIDE 0.9% FLUSH 10 ML FLUSH IV FLUSH SCH ×2 (09:23→23:40)
[2017-01-27] MEDS: BUDESONIDE-FORMOTEROL 160/4.5 MCG INHALER INH SCH ×2 (09:25→23:39)
--- NOTE | 2017-01-27 12:12 | HHI.PR ---
Subjective Remarks stools brown, soft, with some specks of blood + blood when wiping after defecation no abdominal pain now complains of headaches, no nausea or vomiting, no fever or chills Objective Vitals Vital Signs Date Time Temp Pulse Resp B/P Pulse Ox O2 Delivery O2 Flow Rate FiO2 01/27/17 08:03 21 01/27/17 08:00 97.8 77 17 115/62 98 01/27/17 04:00 97.0 79 18 120/57 100 01/27/17 03:21 107 01/27/17 03:08 98.1 80 15 119/65 98 01/27/17 00:00 97.3 27 18 138/70 98 01/26/17 20:38 98 21 01/26/17 20:00 97.7 90 18 143/72 98 01/26/17 15:32 98.0 89 20 137/67 96 01/26/17 13:50 97.9 98 14 146/62 98 Nasal Cannula 2 01/26/17 13:45 104 14 113/60 98 Nasal Cannula 2 01/26/17 13:30 97.9 108 14 113/57 98 Nasal Cannula 2 I/O 01/26/17 01/26/17 01/26/17 01/27/17 01/27/17 01/27/17 07:00 15:00 23:00 07:00 15:00 23:00 Intake Total 300 ml Balance 300 ml Other 300 ml # Voids 3 2 4 # Bowel Movements 3 2 Result Diagram: 01/27/17 0718 01/25/17 0700 Imaging Last Impressions Lower Extremity Ultrasound 01/24/17 0000 Signed Impressions: Service Date/Time: January 10:00 - CONCLUSION: Normal examination. Gino Peterson Jr., MD CT Angiography 01/24/17 0000 Signed Impressions: Service Date/Time: January 22:23 - CONCLUSION: 1. No pulmonary embolus. 2. 1.1 cm irregular mass-like area seen in the left upper lung. It is felt this area could be further evaluated with a PET/FDG study to determine if it is metabolically active or not. If it is metabolically active then a biopsy could be attempted despite the prominent emphysematous change seen around this region putting the patient at risk for a pneumothorax. If the area does not demonstrate increased activity on the PET scan, it could be closely followed. If the PET scan is not performed at the very least a follow-up CT examination in three months would be recommended. Jeffery Villalba MD Chest X-Ray 01/23/172046 Signed Impressions: Service Date/Time: Monday, January 23, 2017 21:11 - CONCLUSION: No acute disease. Polo Cheney MD Lung Scan-V Nuclear Medicine 01/23/17 Signed Impressions: Service Date/Time: Monday, January 23, 2017 22:51 - CONCLUSION: 1. High probability of pulmonary embolism Sherif Knight MD Head CT 01/23/17 0000 Signed Impressions: Service Date/Time: Monday, January 23, 2017 22:35 - CONCLUSION: Unremarkable noncontrast CT. Polo Cheney MD Objective Remarks NAD anicteric, no nuchal rigidity, no temporal tenderness CN intact lungs no rales or wheezes regular rhythm abdomen soft, nontender extremities no edema, no calf tenderness, no swelling neuro exam unremarkable Procedures 01/26- colonoscopy- external and internal hemorrhoids, polyp A/P Problem List: (1) Chest pain ICD Code: R07.9 Status: Acute (2) Pulmonary embolism ICD Code: I26.99 Status: Acute (3) Syncope ICD Code: R55 Status: Acute (4) Anemia ICD Code: D64.9 Status: Acute Assessment and Plan 56 years old Lower GI bleed- BRBPR- secondary to hemorrhoids s/p colonosocpy CRS consulted. S/P band ligation in the past. still with BRBPR. -. H and H stable. anusol supp Iron deficiency anemia from chronic GI blood loss- give IV Iron daily x 3 days S/P 2 units blood transfusion.on iron tid Lung mass on CT. d/w Dr. Barillas- OP ff up with Dr. Barillas- will need PETscan Underlying COPD- smoker.- lungs clear continue MDIs- Jose GALINDOI-, Nirmal GALINDOI.. add Spiriva. counselled on smoking cessation Headache- neuro exam unremarkable prn pain meds. Up and ambulating Problem Qualifiers (1) Chest pain: Qualified Code: R07.9 - Chest pain, unspecified type (2) Pulmonary embolism: Qualified Code: I26.99 - Other pulmonary embolism without acute cor pulmonale, unspecified chronicity (3) Syncope: Qualified Code: R55 - Syncope, unspecified syncope type (4) Anemia: Qualified Code: D64.9 - Anemia, unspecified type Pan Boston MD January 27, 2017 12:12
[2017-01-27] MEDS: traMADol/ACETAMINOPHEN 37.5/325 1 TAB PO PRN ×2 (13:55→23:39)
[2017-01-28] VITALS: BP 128/67; PULSE 78; RESP 18; TEMP 98.4; O2SAT 98
[2017-01-28] MEDS: RESP: ALBUTEROL 2.5 MG/IPRATROPIUM 0.5 MG NEB (SCH) NEB ×3 (03:21→11:32)
[2017-01-28 04:00] VITALS: BP 132/70; PULSE 64; RESP 18; TEMP 97.3; O2SAT 99
[2017-01-28 07:44] LABS: HEMATOCRIT 34.3 % (39.0-51.0); MEAN CELL VOLUME 81.9 FL (80.0-100.0); MEAN CORPUSCULAR HEMOGLOBIN 25.6 PG (27.0-34.0); MEAN CORPUSCULAR HGB CONC 31.3 % (32.0-36.0); PLATELET COUNT 302 TH/MM3 (150-450); RED BLOOD COUNT 4.19 MIL/MM3 (4.50-5.90); RED CELL DISTRIBUTION WIDTH 16.7 % (11.6-17.2); REVIEW FLAG FINAL; WHITE BLOOD COUNT 7.7 TH/MM3 (4.0-11.0)
[2017-01-28 08:05] VITALS: PULSE 73
[2017-01-28 08:27] VITALS: BP 116/50; PULSE 74; RESP 18; TEMP 97.8; O2SAT 94
[2017-01-28] MEDS: TIOTROPIUM BROMIDE 18 MCG INH INH SCH (09:00)
[2017-01-28] MEDS: traMADol/ACETAMINOPHEN 37.5/325 1 TAB PO PRN (09:32)
[2017-01-28] MEDS: HYDROCORTISONE ACETATE 25 MG SUPP RECTAL SCH (09:32)
[2017-01-28] MEDS: BUDESONIDE-FORMOTEROL 160/4.5 MCG INHALER INH SCH (09:33)
[2017-01-28] MEDS: SODIUM CHLORIDE 0.9% FLUSH 10 ML FLUSH IV FLUSH SCH (09:33)
[2017-01-28] MEDS: ALBUTEROL SULFATE 90 MCG/ACT HFA 18 GM INHALER INH SCH ×2 (09:33→11:18)
[2017-01-28 13:12] VITALS: BP 123/57; PULSE 95; RESP 18; TEMP 98.9; O2SAT 97
--- NOTE | 2017-01-28 13:27 | HHI.PR ---
Subjective Remarks feels great no further hematochezia good po Objective Vitals Vital Signs Date Time Temp Pulse Resp B/P Pulse Ox O2 Delivery O2 Flow Rate FiO2 01/28/17 13:12 98.9 95 18 123/57 97 01/28/17 11:34 21 01/28/17 09:58 21 01/28/17 08:27 97.8 74 18 116/50 94 01/28/17 08:05 73 01/28/17 04:00 97.3 64 18 132/70 99 01/28/17 00:00 98.4 78 18 128/67 98 01/27/17 23:41 97.7 75 18 131/75 99 01/27/17 19:18 98 21 01/27/17 16:10 83 01/27/17 16:00 98.0 83 17 138/71 98 I/O 01/27/17 01/27/17 01/27/17 01/28/17 01/28/17 01/28/17 07:00 15:00 23:00 07:00 15:00 23:00 Intake Total 600 ml Balance 600 ml Intake Oral 600 ml # Voids 4 5 Result Diagram: 01/28/17 0656 01/25/17 0700 Imaging Last Impressions Lower Extremity Ultrasound 01/24/17 0000 Signed Impressions: Service Date/Time: January 10:00 - CONCLUSION: Normal examination. Gino Peterson Jr., MD CT Angiography 01/24/17 0000 Signed Impressions: Service Date/Time: January 22:23 - CONCLUSION: 1. No pulmonary embolus. 2. 1.1 cm irregular mass-like area seen in the left upper lung. It is felt this area could be further evaluated with a PET/FDG study to determine if it is metabolically active or not. If it is metabolically active then a biopsy could be attempted despite the prominent emphysematous change seen around this region putting the patient at risk for a pneumothorax. If the area does not demonstrate increased activity on the PET scan, it could be closely followed. If the PET scan is not performed at the very least a follow-up CT examination in three months would be recommended. Jeffery Villalba MD Chest X-Ray 01/23/172046 Signed Impressions: Service Date/Time: Monday, January 23, 2017 21:11 - CONCLUSION: No acute disease. Polo Cheney MD Lung Scan-VQ Nuclear Medicine 01/23/17 0000 Signed Impressions: Service Date/Time: Monday, January 23, 2017 22:51 - CONCLUSION: 1. High probability of pulmonary embolism Sherif Knight MD Head CT 01/23/17 0000 Signed Impressions: Service Date/Time: Monday, January 23, 2017 22:35 - CONCLUSION: Unremarkable noncontrast CT. Polo Cheney MD Objective Remarks NAD anicteric, no nuchal rigidity, no temporal tenderness CN intact lungs no rales or wheezes regular rhythm abdomen soft, nontender extremities no edema, no calf tenderness, no swelling neuro exam unremarkable Procedures 01/26- colonoscopy- external and internal hemorrhoids, polyp 01/27 EGD- gastritis, duodenitis A/P Problem List: (1) Chest pain ICD Code: R07.9 Status: Acute (2) Pulmonary embolism ICD Code: I26.99 Status: Acute (3) Syncope ICD Code: R55 Status: Acute (4) Anemia ICD Code: D64.9 Status: Acute Assessment and Plan 56 years old Lower GI bleed- BRBPR- secondary to hemorrhoids s/p colonosocpy CRS consulted. S/P band ligation in the past. still with BRBPR. -. H and H stable. anusol supp Gastritis/duodenitis on EGD- no NSAIDs. PPI daily Iron deficiency anemia from chronic GI blood loss- give IV Iron daily x 3 days S/P 2 units blood transfusion.on iron tid Lung mass on CT. d/w Dr. Barillas- OP ff up with Dr. aBrillas- will need PETscan Underlying COPD- smoker.- lungs clear continue MDIs- Jose GALINDOI-, Nirmal GALINDOI.. add Spiriva. counselled on smoking cessation Headache- neuro exam unremarkable prn pain meds. Up and ambulating FF up with PCP FF up wwith GI in 2 weeks return to ER if bleeding recurs Problem Qualifiers (1) Chest pain: Qualified Code: R07.9 - Chest pain, unspecified type (2) Pulmonary embolism: Qualified Code: I26.99 - Other pulmonary embolism without acute cor pulmonale, unspecified chronicity (3) Syncope: Qualified Code: R55 - Syncope, unspecified syncope type (4) Anemia: Qualified Code: D64.9 - Anemia, unspecified type Pan Boston MD January 28, 2017 13:27
[2017-01-28] MEDS ORDERED: SPIRCAP INH (13:37)
[2017-01-28] MEDS ORDERED: Hydrocortisone Supp RECTAL (13:37)
[2017-01-28] MEDS ORDERED: PANT40TA3 PO (13:37)
--- NOTE | 2017-01-28 13:40 | HHI.DS ---
Discharge Summary Admission Date January 24, 2017 at 00:14 Discharge Date: January 28, 2017 Admitting Diagnosis pulmonary embolism, syncope, chest pain (1) Anemia ICD Code: D64.9 Diagnosis: Principal (2) Chest pain ICD Code: R07.9 Diagnosis: Principal (3) Syncope ICD Code: R55 Diagnosis: Principal Procedures 01/26- colonoscopy- external and internal hemorrhoids, polyp 01/27 EGD- gastritis, duodenitis Brief History - From Admission Mr. Weinberg is a 56 year-old male with a history of COPD, GI bleed, anemia, anxiety, depression, hypertension, and sleep apnea (does not use CPAP) who presented to the emergency room with one month history of progressively worsening intermittent chest pain with shortness of breath, dizziness, and syncope. VQ scan was performed in ER showing high probability for pulmonary embolism. The patient is seen in the CDU. He reports that he has been feeling "short of wind", chest pain, dizziness, headaches, nausea without vomiting, and intermittent bright red with clots and at times dark stools (reports internal hemorrhoids - banded one year ago) over the past month. He states that earlier on 01/23/2017, he and his brother were in an argument, he stood up, and passed out. He denies leg swelling but reports that his legs feel "tingly". He denies any recent long distance travel or recent surgeries. The patient reports an allergic reaction during a nuclear stress test. He states that as soon as they injected the medication, he "fell out" and doesn't remember anything until he woke up afterwards. According to the record from 01/22, while performing the stress test portion of the test with adenosine, the patient became extremely short of breath with bilateral wheezing described as a "severe asthmatic attack" only 2 minutes into the exam and the test had to be terminated. His shortness of breath was treated with oxygen, albuterol inhaler , and Aminophyllin. It took 15-20 minutes for him to recover from this reaction to adenosine. Subsequently, I am questioning whether the contrast media is a true allergy for this patient. He reports being able to eat shellfish though reports that sometimes his girlfriend tells him that he gets a rash on his back when eating shrimp but he is not 100% sure and does not avoid eating shrimp. . CBC/BMP: 01/28/17 0656 01/25/17 0700 Significant Findings Laboratory Tests Test 01/25/17 01/26/17 01/27/17 01/28/17 16:51 07:14 07:18 06:56 Hemoglobin 10.7 GM/DL 10.8 GM/DL 10.5 GM/DL 10.7 GM/DL (13.0-17.0) (13.0-17.0) (13.0-17.0) (13.0-17.0) Hematocrit 32.9 % 32.7 % 33.3 % 34.3 % (39.0-51.0) (39.0-51.0) (39.0-51.0) (39.0-51.0) Red Blood Count 4.06 MIL/MM3 4.07 MIL/MM3 4.19 MIL/MM3 (4.50-5.90) (4.50-5.90) (4.50-5.90) Mean Corpuscular Hemoglobin 26.6 PG 25.8 PG 25.6 PG (27.0-34.0) (27.0-34.0) (27.0-34.0) Monocytes (%) (Auto) 19.4 % (0.0-8.0) Monocytes # (Auto) 1.4 TH/MM3 (0-0.9) Mean Corpuscular Hemoglobin 31.5 % 31.3 % Concent (32.0-36.0) (32.0-36.0) Imaging Last Impressions Lower Extremity Ultrasound 01/24/17 0000 Signed Impressions: Service Date/Time: January 10:00 - CONCLUSION: Normal examination. Gino Peterson Jr., MD CT Angiography 01/24/17 0000 Signed Impressions: Service Date/Time: January 22:23 - CONCLUSION: 1. No pulmonary embolus. 2. 1.1 cm irregular mass-like area seen in the left upper lung. It is felt this area could be further evaluated with a PET/FDG study to determine if it is metabolically active or not. If it is metabolically active then a biopsy could be attempted despite the prominent emphysematous change seen around this region putting the patient at risk for a pneumothorax. If the area does not demonstrate increased activity on the PET scan, it could be closely followed. If the PET scan is not performed at the very least a follow-up CT examination in three months would be recommended. Jeffery Villalba MD Chest X-Ray 01/23/172046 Signed Impressions: Service Date/Time: Monday, January 23, 2017 21:11 - CONCLUSION: No acute disease. Polo Cheney MD Lung Scan-VQ Nuclear Medicine 01/23/17 0000 Signed Impressions: Service Date/Time: Monday, January 23, 2017 22:51 - CONCLUSION: 1. High probability of pulmonary embolism Sherif Knight MD Head CT 01/23/17 0000 Signed Impressions: Service Date/Time: Monday, January 23, 2017 22:35 - CONCLUSION: Unremarkable noncontrast CT. Polo Cheney MD PE at Discharge NAD anicteric, no nuchal rigidity, no temporal tenderness CN intact lungs no rales or wheezes regular rhythm abdomen soft, nontender extremities no edema, no calf tenderness, no swelling neuro exam unremarkable Pt update on day of discharge awake and alert, no difficulty swallowing or breathing no bleeding episodes up and ambulating discuss with him [facility] Hospital Course 56 years old Lower GI bleed- BRBPR- secondary to hemorrhoids s/p colonosocpy CRS consulted. S/P band ligation in the past. still with BRBPR. -. H and H stable. anusol supp Gastritis/duodenitis on EGD- no NSAIDs. PPI daily Iron deficiency anemia from chronic GI blood loss- give IV Iron daily x 3 days S/P 2 units blood transfusion.on iron tid Lung mass on CT. d/w Dr. Barillas- OP ff up with Dr. Barillas- will need PETscan Underlying COPD- smoker.- lungs clear continue MDIs- Jose GALINDOI-, Nirmal GALINDOI.. add Spiriva. counselled on smoking cessation Headache- neuro exam unremarkable prn pain meds. Up and ambulating FF up with PCP FF up wwith GI in 2 weeks return to ER if bleeding recurs.. NO NSAIDS Pt Condition on Discharge: Stable Discharge Disposition: Discharge Home Discharge Time: <= 30 minutes Discharge Instructions DIET: Follow Instructions for: As Tolerated, No Restrictions Activities you can perform: Weight Bearing as Charles Activities to Avoid: Strenuous Activity Follow up Referrals: Gastroenterology - 2 Weeks with Gil Stone MD PCP Follow-up - 01/31/17 with PCP New Medications: Docusate Sodium (Colace) 100 Mg Cap 100 MG PO BID Constipation #30 Ref 0 CAP Pantoprazole (Pantoprazole) 40 Mg Tab 40 MG PO DAILY gastri Days 30 TAB Tiotropium Inh (Spiriva Handihaler) 18 Mcg Cap 18 MCG INH DAILY COPD Days 30 Ref 1 CAP Tramadol-Acetaminophen (Tramadol-Acetaminophen) 37.5-325 mg Tab 1 TAB PO Q8HR PRN HEADACHE Days 5 TAB ([Hydrocortisone Supp]) 25 MG SUPP 25 MG RECTAL BID LGIB hemor Days 10 SUPP Continued Medications: Albuterol 8.5 GM Inh (Proair Hfa 8.5 GM Inh) 90 Mcg/Act Aer 2 PUFF INH Q4-6H 108 mcg/actuation PRN SHORTNESS OF BREATH #1 Ref 0 INHALER Fluticasone-Salmeterol Inh (Advair Diskus Inh) 250-50 Mcg/Blist Aer 1 PUFF INH BID Rinse mouth after use. #1 Ref 0 INHALER Psyllium Powder (Metamucil Original Texture) 48.57 % Pow 1 SCOOP PO DAILY 1 rounded TEASPOON in 8 oz of liquid at the first sign of irregularity. PRN CONSTIPATION Days 30 Ref 0 CONTAINER Discontinued Medications: Phenylephrine-[place] Butter Supp (Preparation H Supp) 0.25-88.44 % Supp 1 SUPP RECTAL QID PRN INFLAMMATION Days 14 Ref 0 SUPP Pan Boston MD January 28, 2017 13:40
[2017-01-28] MEDS ORDERED: TRAM-388 PO (13:56)
[2017-01-28] MEDS ORDERED: COLA100C3 PO (13:57)
[2017-01-28] MEDS ORDERED: PANTOPRAZOLE SOD 40 MG DELAYED RELEASE TAB PO SCH (14:00)
[2017-01-28] MEDS ORDERED: NEBULIZER1 MI1 (14:08)
[2017-01-28] MEDS ORDERED: ULTR50TA5 PO (14:28)
--- NOTE | 2017-01-28 14:49 | HHI.GIFU ---
Subjective Remarks Pt seated on edge of bed in civilian clothes, waiting to go home. Says he had some blood in his stool this morning. NO pain, n/v, diarrhea. (Adelina Andrade) Objective Vitals I&O Vital Signs Date Time Temp Pulse Resp B/P Pulse Ox O2 Delivery O2 Flow Rate FiO2 01/28/17 13:12 98.9 95 18 123/57 97 01/28/17 11:34 21 01/28/17 09:58 21 01/28/17 08:27 97.8 74 18 116/50 94 01/28/17 08:05 73 01/28/17 04:00 97.3 64 18 132/70 99 01/28/17 00:00 98.4 78 18 128/67 98 01/27/17 23:41 97.7 75 18 131/75 99 01/27/17 19:18 98 21 01/27/17 16:10 83 01/27/17 16:00 98.0 83 17 138/71 98 I/O 01/27/17 01/27/17 01/27/17 01/28/17 01/28/17 01/28/17 06:59 14:59 22:59 06:59 14:59 22:59 Intake Total 600 ml Balance 600 ml Intake Oral 600 ml # Voids 4 5 Laboratory Laboratory Tests Test 01/28/17 06:56 White Blood Count 7.7 Red Blood Count 4.19 Hemoglobin 10.7 Hematocrit 34.3 Mean Corpuscular Volume 81.9 Mean Corpuscular Hemoglobin 25.6 Mean Corpuscular Hemoglobin 31.3 Concent Red Cell Distribution Width 16.7 Platelet Count 302 Mean Platelet Volume 7.8 Imaging Last Impressions Lower Extremity Ultrasound 01/24/17 0000 Signed Impressions: Service Date/Time: January 10:00 - CONCLUSION: Normal examination. Gino Peterson Jr., MD CT Angiography 01/24/17 0000 Signed Impressions: Service Date/Time: January 22:23 - CONCLUSION: 1. No pulmonary embolus. 2. 1.1 cm irregular mass-like area seen in the left upper lung. It is felt this area could be further evaluated with a PET/FDG study to determine if it is metabolically active or not. If it is metabolically active then a biopsy could be attempted despite the prominent emphysematous change seen around this region putting the patient at risk for a pneumothorax. If the area does not demonstrate increased activity on the PET scan, it could be closely followed. If the PET scan is not performed at the very least a follow-up CT examination in three months would be recommended. Jeffery Villalba MD Chest X-Ray 01/23/172046 Signed Impressions: Service Date/Time: Monday, January 23, 2017 21:11 - CONCLUSION: No acute disease. Polo Cheney MD Lung Scan-VQ Nuclear Medicine 01/23/17 Signed Impressions: Service Date/Time: Monday, January 23, 2017 22:51 - CONCLUSION: 1. High probability of pulmonary embolism Sherif Knight MD Head CT 01/23/17 0000 Signed Impressions: Service Date/Time: Monday, January 23, 2017 22:35 - CONCLUSION: Unremarkable noncontrast CT. Polo Cheney MD Physical Exam HEENT: Normocephalic; atraumatic; no jaundice. CHEST: CTA. CARDIAC: RRR. ABDOMEN: Soft, nondistended, mild epigastric tenderness; no hepatosplenomegaly ; bowel sounds are present in all four quadrants. EXTREMITIES: No clubbing, cyanosis, or edema. SKIN: Normal; no rash; no jaundice. [employer]VER [employer]ER: No focal deficits; alert and oriented times three. (Adelina Andrade [facility]) Assessment and Plan Plan ASSESSMENT: - Rectal bleeding. Has hx of hemorrhoids and anal fissure and has had rectal bleeding for past year. CTA negative for PE. s/p Colonoscopy/egd 01-26-17 ---> EGD found erythematous gastritis, duodenal inflammation; cscope found sessile polyp in sigmoid, hemorrhoids. Pt concerned about contact information being correct- his number is [phone] and the other contact is Neelima Soliz, - Anemia, acute blood loss. S/P 2 units PRBC. HH this am was 10.7, 34.3. stable - Epigastric pain, Nausea. PPI. EGD as above - Abn. VQ Scan with high probability for PE, but CTA negative for PE. - Left upper lung mass. CTA with 1.1 cm irregular mass like area in left upper lung, recommends PET/FDG vs CT Thorax in 3 months. Per primary PLAN: - PPI - Hydrocortisone suppositories prn - await pathology - f/u in office 3 weeks -Okay to d/c from GI standpoint - Pt seen and examined by Dr. Watt and myself and this note is written on her behalf (Adelina Andrade) Adelina Andrade January 28, 2017 14:49 Jessica Watt MD January 28, 2017 21:25
[2017-01-29 03:52] LABS: FACTOR X (10) ACTIVITY 112 (70-150)
--- NOTE | 2017-02-07 09:01 | RSPPFT ---
DATE OF PROCEDURE: 01/25/17 COMMENTS: Spirometry with FVC of 1.9, FEV1 of 1.1, FEV1/FVC ratio at 57%. A non-significant response to inhaled bronchodilator noted. IMPRESSION: 1. Moderately severe airways obstruction. 2. Non-significant response to inhaled bronchodilator.
== END 2017-01-28 14:43 | disposition home or self-care (01) | DRG 394 ==
LOC: NEPC 20:33 → NEDA 01-24 00:14 → NEPHCDU 01-24 01:31 → N05A 01-24 13:49
PROVIDERS: ADMIT Internal Medicine; ATTEND Internal Medicine
PROC: 30233N1 Transfusion of Nonautologous Red Blood Cells into Peripheral Vein, Percutaneous Approach (ICD-10-PCS; 2017-01-24)
PROC: 0DB68ZX Excision of Stomach, Via Natural or Artificial Opening Endoscopic, Diagnostic (ICD-10-PCS; principal; 2017-01-26 12:40)
PROC: 0DBN8ZX Excision of Sigmoid Colon, Via Natural or Artificial Opening Endoscopic, Diagnostic (ICD-10-PCS; 2017-01-26 12:40)
DX: K64.8 Other hemorrhoids (principal); D62 Acute posthemorrhagic anemia; I10 Essential (primary) hypertension; R91.8 Other nonspecific abnormal finding of lung field; R55 Syncope and collapse; J44.9 Chronic obstructive pulmonary disease, unspecified; G47.30 Sleep apnea, unspecified; J45.909 Unspecified asthma, uncomplicated; R73.03 Prediabetes; K59.00 Constipation, unspecified; K29.70 Gastritis, unspecified, without bleeding; K29.80 Duodenitis without bleeding; K64.4 Residual hemorrhoidal skin tags; D12.5 Benign neoplasm of sigmoid colon; M19.041 Primary osteoarthritis, right hand; M19.042 Primary osteoarthritis, left hand; H91.91 Unspecified hearing loss, right ear; F10.20 Alcohol dependence, uncomplicated; F12.10 Cannabis abuse, uncomplicated; F17.200 Nicotine dependence, unspecified, uncomplicated; F32.9 Major depressive disorder, single episode, unspecified; F41.9 Anxiety disorder, unspecified; Z83.3 Family history of diabetes mellitus; Z86.11 Personal history of tuberculosis; Z91.041 Radiographic dye allergy status
CPT/HCPCS: 36430; 70450; 71010; 71275; 78582; 80048; 80053; 81241; 82607; 82728; 82746; 83540; 83550; 83735; 83880; 84484; 85014; 85018; 85025; 85027; 85210; 85230; 85260; 85379; 85384; 85598; 85610; 85613; 85730; 86850; 86900; 86901; 86920; 88305; 93005; 93970; 94060; 94640; 94664; A9540; A9567; J1644; J1756; J7613; P9016; Q9967